=== PATIENT | female | born 1945 | race Caucasian/White ===

== ENCOUNTER 2019-08-25 12:05 | Inpatient (IN) | payer MEDICARE, OTHER ==
[~2019-08-25] VITALS: Ht 170.2 cm; Wt 79.8 kg
[~2019-08-25 12:05] MED LIST: BUME2TAB3 PO; CARV6.2511 PO; CHOL10003 PO; DIAZ5TAB PO; FERR325T58 PO; FURO-68 PO; HYDR-2761 PO; HYDR-2868 PO; LABE300T2 PO; LEVO500T59 PO; LIDO700A27 TP; LISI-334 PO; MULT-246 PO; NYST1POW2 PO; OXYB5TAB10 PO; POTA25TA4 PO; PRAM0.255 PO; TROL35.4 TP
[2019-08-25 12:32] LABS: BASO % 0 % (0-3); EOS # 0.1 x10^3/uL (0.0-0.7); EOS % 1 % (0-3); HEMOGLOBIN 14.2 g/dL (12.0-15.5); LYMPH # 0.5 x10^3/uL (1.0-4.8); LYMPH % 6 % (24-48); MEAN CORPUSCULAR HEMOGLOBIN 31 pg (25-35); MEAN CORPUSCULAR HGB CONC 34 g/dL (31-37); MEAN CORPUSCULAR VOLUME 93 fL (79-100); MONO # 0.4 x10^3/uL (0.0-1.1); MONO % 5 % (0-9); NEUT # 7.7 x10^3/uL (1.8-7.7); NEUT % 88 % (31-73); PLATELET COUNT 171 x10^3/uL (140-400); RED BLOOD COUNT 4.53 x10^6/uL (3.50-5.40); RED CELL DISTRIBUTION WIDTH 13.9 % (11.5-14.5); WHITE BLOOD COUNT 8.8 x10^3/uL (4.0-11.0)
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
--- NOTE | 2019-08-25 12:38 | RAD ---
PORTABLE CHEST 1V Clinical indications: Chest pain. COMPARISON: None available. Findings: No acute lung infiltrate or pleural effusion or pulmonary edema or lung mass or pneumothorax is seen. A right IJ Port-A-Cath is in place and the tip is seen within the lower SVC at the junction with the right atrium. Bipolar atrioventricular pacemaker is present via a right subclavian approach. The heart size is mildly enlarged. The mediastinum and pulmonary vasculature and both cadence are unremarkable otherwise. IMPRESSION: Mild cardiomegaly. No acute lung infiltrate. Electronically signed by: Giorgi Dunn MD (08/25/2019 12:35 PM) [facility]
[2019-08-25 12:42] LABS: PROTHROMBIN TIME PATIENT 13.8 SEC (11.7-14.0)
[2019-08-25 12:43] LABS: CREATININE 0.7 mg/dL (0.6-1.0); GFR 81.8; POTASSIUM 3.6 mmol/L (3.5-5.1)
--- NOTE | 2019-08-25 12:47 | PHYS DOC ---
Adult General Chief Complaint Chief Complaint: CHEST PAIN HPI HPI Patient is a 73 year old female who was brought here from the residential due to chest pain. Patient has history of coronary artery disease, had a pacemaker, residential staff gave her 3 doses of nitroglycerin, she continued have chest pain so EMS were called to take her here for evaluation. Patient was given morphine by EMS on route. Patient continued to complain of chest pain. She denies any fever, no cough. All other ROS is negative unless otherwise noted in HPI Review of Systems Review of Systems See above Current Medications Current Medications Current Medications Medications (Trade) Dose Ordered Sig/Cecelia Start Time Stop Time Status Last Admin Dose Admin Albuterol/ Ipratropium (Duoneb) 3 ml RTQID 08/25/19 16:00 08/26/19 15:59 Fentanyl Citrate (Fentanyl 2ml Vial) 50 mcg 1X ONCE 08/25/19 13:15 08/25/19 13:17 DC 08/25/19 13:30 50 MCG Labetalol HCl (Normodyne Iv Push) 20 mg PRN Q2HRS PRN 08/25/19 14:15 Magnesium Sulfate 50 ml @ 25 mls/hr 1X ONCE 08/25/19 14:15 08/25/19 16:14 Morphine Sulfate (Morphine Sulfate) 2 mg PRN Q2HR PRN 08/25/19 14:00 08/26/19 13:59 Ondansetron HCl (Zofran) 4 mg PRN Q8HRS PRN 08/25/19 14:00 08/26/19 13:59 Allergies Allergies Allergies Coded Allergies Type Severity Reaction Last Updated Verified adhesive Allergy Intermediate 08/25/19 Yes latex Allergy Intermediate 08/25/19 Yes methadone Allergy Intermediate 08/25/19 Yes nickel Allergy Intermediate 08/25/19 Yes Physical Exam Physical Exam See above Constitutional: Well developed, well nourished, in MODERATE acute distress, non- toxic appearance. [] HENT: Normocephalic, atraumatic, bilateral external ears normal, oropharynx mo ist, no oral exudates, nose normal. [] Eyes: PERRLA, EOMI, conjunctiva normal, no discharge. [] Neck: Normal range of motion, no tenderness, supple, no stridor. [] Cardiovascular:Heart rate regular rhythm, no murmur , CHEST PAIN IS REPRODUCIBLE TO PALPATION. Lungs & Thorax: Bilateral breath sounds clear to auscultation [] Abdomen: Bowel sounds normal, soft, no tenderness, no masses, no pulsatile masses. [] Skin: Warm, dry, no erythema, no rash. [] Back: No tenderness, no CVA tenderness. [] Extremities: LEFT LEG IS SWOLLEN, APPEARED TO HAVE CHRONIC VENOUS STASIS APPEARANCE. Neurologic: Alert and oriented X 3, NORMAL SPEECH. Psychologic: Affect normal, judgement normal, mood normal. [] Current Patient Data Vital Signs Vital Signs Date Time Temp Pulse Resp B/P (MAP) Pulse Ox O2 Delivery O2 Flow Rate FiO2 08/25/19 13:30 20 08/25/19 12:50 98.9 77 183/78 (113) 95 Room Air 98.9 Lab Values Laboratory Tests Test 08/25/19 12:18 08/25/19 13:02 White Blood Count 8.8 x10^3/uL (4.0-11.0) Red Blood Count 4.53 x10^6/uL (3.50-5.40) Hemoglobin 14.2 g/dL (12.0-15.5) Hematocrit 42.0 % (36.0-47.0) Mean Corpuscular Volume 93 fL (79-100) Mean Corpuscular Hemoglobin 31 pg (25-35) Mean Corpuscular Hemoglobin Concent 34 g/dL (31-37) Red Cell Distribution Width 13.9 % (11.5-14.5) Platelet Count 171 x10^3/uL (140-400) Neutrophils (%) (Auto) 88 % (31-73) H Lymphocytes (%) (Auto) 6 % (24-48) L Monocytes (%) (Auto) 5 % (0-9) Eosinophils (%) (Auto) 1 % (0-3) Basophils (%) (Auto) 0 % (0-3) Neutrophils # (Auto) 7.7 x10^3/uL (1.8-7.7) Lymphocytes # (Auto) 0.5 x10^3/uL (1.0-4.8) L Monocytes # (Auto) 0.4 x10^3/uL (0.0-1.1) Eosinophils # (Auto) 0.1 x10^3/uL (0.0-0.7) Basophils # (Auto) 0.0 x10^3/uL (0.0-0.2) Platelet Estimate Pending Prothrombin Time 13.8 SEC (11.7-14.0) Prothrombin Time INR 1.1 (0.8-1.1) Activated Partial Thromboplast Time 36 SEC (24-38) Sodium Level 139 mmol/L (136-145) Potassium Level 3.6 mmol/L (3.5-5.1) Chloride Level 102 mmol/L (98-107) Carbon Dioxide Level 30 mmol/L (21-32) Anion Gap 7 (6-14) Blood Urea Nitrogen 12 mg/dL (7-20) Creatinine 0.7 mg/dL (0.6-1.0) Estimated GFR (Cockcroft-Gault) 81.8 BUN/Creatinine Ratio 17 (6-20) Glucose Level 134 mg/dL (70-99) H Calcium Level 9.0 mg/dL (8.5-10.1) Magnesium Level 1.5 mg/dL (1.8-2.4) L Total Bilirubin 0.6 mg/dL (0.2-1.0) Aspartate Amino Transferase (AST) 24 U/L (15-37) Alanine Aminotransferase (ALT) 19 U/L (14-59) Alkaline Phosphatase 126 U/L (46-116) H Troponin I Quantitative < 0.017 ng/mL (0.000-0.055) OA-Vur-G-Type Natriuretic Peptide 2853 pg/mL (0-124) H Total Protein 6.9 g/dL (6.4-8.2) Albumin 2.8 g/dL (3.4-5.0) L Albumin/Globulin Ratio 0.7 (1.0-1.7) L Lipase 22 U/L (73-393) L Urine Collection Type Unknown Urine Color Yellow Urine Clarity Cloudy Urine pH 6.0 Urine Specific [place] 1.015 Urine Protein Negative mg/dL (NEG-TRACE) Urine Glucose (UA) Negative mg/dL (NEG) Urine Ketones (Stick) Negative mg/dL (NEG) Urine Blood Trace (NEG) Urine Nitrite Negative (NEG) Urine Bilirubin Negative (NEG) Urine Urobilinogen Dipstick 1.0 mg/dL (0.2 mg/dL) Urine Leukocyte Esterase Large (NEG) Urine RBC 0 /HPF (0-2) Urine WBC Tntc /HPF (0-4) Urine Squamous Epithelial Cells Mod /LPF Urine Amorphous Sediment Present /HPF Urine Bacteria Many /HPF (0-FEW) Laboratory Tests 08/25/19 12:18 Laboratory Tests 08/25/19 12:18 EKG EKG EKG WAS DONE, READ BY THIS PHYSICIAN AT 1211, RATE OF 81 BPM, PACED RHYTHM, LBBB NO STEMI Radiology/Procedures Radiology/Procedures [][facility] [address] [place] [address] IMAGING REPORT Signed PATIENT: AIDAN AYERSACCOUNT: [id number] : 1945 LOCATION: ER AGE: 73 SEX: F EXAM STATUS: PRE ER ORD. PHYSICIAN: MELISA COLE DO REASON: CHEST PAIN PROCEDURE: PORTABLE CHEST 1V PORTABLE CHEST 1V Clinical indications: Chest pain. COMPARISON: None available. Findings: No acute lung infiltrate or pleural effusion or pulmonary edema or lung mass or pneumothorax is seen. A right IJ Port-A-Cath is in place and the tip is seen within the lower SVC at the junction with the right atrium. Bipolar atrioventricular pacemaker is present via a right subclavian approach. The heart size is mildly enlarged. The mediastinum and pulmonary vasculature and both cadence are unremarkable otherwise. IMPRESSION: Mild cardiomegaly. No acute lung infiltrate. Electronically signed by: Christiano Dunn MD (08/25/2019 12:35 PM) [facility] DICTATED and SIGNED BY: CHRISTIANO DUNN MD DATE: 08/25/19 1235 Course & Med Decision Making Course & Med Decision Making Pertinent Labs and Imaging studies reviewed. (See chart for details) PATIENT CONTINUES TO HAVE CHEST PAIN DESPITE OF PAIN MEDICATION GIVEN, PAIN APPEARED TO BE REPRODUCIBLE TO PALPATION. HOWEVER DUE TO HER COMORBILITIES, WILL ADMIT HER FOR OBSERVATION. Dragon Disclaimer Dragon Disclaimer This electronic medical record was generated, in whole or in part, using a voice recognition dictation system. Departure Departure Impression: Primary Impression: Chest pain Disposition: ADMITTED INPATIENT Admitting Physician: Madi. Lora Condition: STABLE MELISA COLE DO Aug 25, 2019 12:47
[2019-08-25 12:48] LABS: ALBUMIN 2.8 g/dL (3.4-5.0); ALBUMIN/GLOBULIN RATIO 0.7 (1.0-1.7); MAGNESIUM 1.5 mg/dL (1.8-2.4); TOTAL BILIRUBIN 0.6 mg/dL (0.2-1.0); TOTAL PROTEIN 6.9 g/dL (6.4-8.2)
[2019-08-25 13:12] LABS: BILIRUBIN,URINE NEGATIVE (NEG); CLARITY,URINE CLOUDY; COLOR,URINE YELLOW; NITRITE,URINE NEGATIVE (NEG); PROTEIN,URINE NEGATIVE (NEG-TRACE)
[2019-08-25] MEDS ORDERED: ONDANSETRON PF 4 MG/2 ML VIAL. ONE (13:12)
[2019-08-25] MEDS ORDERED: fentaNYL PF VIAL 100 MCG/2 ML VIAL IVP ONE (13:15)
[2019-08-25 13:29] LABS: SQUAMOUS EPITHELIAL CELL,UR MOD /LPF
--- NOTE | 2019-08-25 13:29 | EKG ---
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
[2019-08-25 13:30] LABS: AMORPHOUS SEDIMENT,UR PRESENT /HPF; BACTERIA,URINE MANY /HPF (0-FEW); RBC,URINE 0 /HPF (0-2); WBC,URINE TNTC /HPF (0-4)
[2019-08-25] MEDS ORDERED: ONDANSETRON PF 4 MG/2 ML VIAL. IV ONE (13:45)
[2019-08-25] MEDS ORDERED: ONDANSETRON PF 4 MG/2 ML VIAL. IV PRN (14:00)
[2019-08-25] MEDS ORDERED: MAGNESIUM SULFATE 2GM 50 ML IV ONE (14:15)
[2019-08-25] MEDS ORDERED: LABETALOL 20 MG/4 ML DISP.SYRIN. IVP PRN (14:15)
[2019-08-25] MEDS: MORPHINE SULFATE 2 MG/ML VIAL. IV PRN ×2 (14:36→17:02)
[2019-08-25 14:48] LABS: % BANDS 2 % (0-9); % EOS 1 % (0-5); % LYMPHS 8 % (24-48); % MONOS 2 % (0-10); % SEGS 87 % (35-66); PLT ESTIMATE ADEQUATE (ADEQUATE); TOXIC GRANULATION SLIGHT; TOXIC VACUOLATION SLIGHT
[2019-08-25] MEDS: IPRATRPIUM/ALBUTEROL 0.5/2.5MG 3 ML NEBU. NEB SCH ×2 (15:02→19:19)
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
[2019-08-25 15:30] VITALS: BP 177/74
[2019-08-25] MEDS ORDERED: FERR325T14 PO (16:08)
[2019-08-25] MEDS ORDERED: ONDA4TAB12 PO (16:08)
[2019-08-25] MEDS ORDERED: BUPR300T4 PO (16:08)
[2019-08-25] MEDS ORDERED: TRAZ-118 PO (16:08)
[2019-08-25] MEDS ORDERED: MORP60TA60 PO (16:08)
[2019-08-25] MEDS ORDERED: NITR0.4T22 SL (16:08)
[2019-08-25] MEDS ORDERED: DONE10TA61 PO (16:08)
[2019-08-25] MEDS ORDERED: CHOL500016 PO (16:08)
[2019-08-25] MEDS ORDERED: OXYC5CAP PO (16:08)
[2019-08-25] MEDS ORDERED: PANT40TA6 PO (16:08)
[2019-08-25] MEDS ORDERED: AMLO5TAB10 PO (16:08)
[2019-08-25] MEDS ORDERED: DIPH25CA58 PO (16:08)
[2019-08-25] MEDS ORDERED: GABA-585 PO (16:08)
[2019-08-25] MEDS ORDERED: CARV12.511 PO (16:08)
[2019-08-25] MEDS ORDERED: MULT-121 PO (16:08)
[2019-08-25] MEDS ORDERED: ASCO500C PO (16:08)
[2019-08-25] MEDS ORDERED: SERT50TA PO (16:08)
[2019-08-25] MEDS ORDERED: POTA20TA82 PO (16:08)
[2019-08-25] MEDS: CARVEDILOL 12.5 MG TABLET. PO SCH (17:01)
[2019-08-25 19:20] VITALS: BP_SYST 152; BP_SYST 159; BP_DIAS 65; BP_DIAS 87
[2019-08-25] MEDS: PATCH REMOVAL. MC SCH (21:00)
[2019-08-25 23:52] VITALS: BP 154/67
[2019-08-26] MEDS: MORPHINE SULFATE 2 MG/ML VIAL. IV PRN ×3 (01:08→08:56)
[2019-08-26 03:00] VITALS: BP 152/64
[2019-08-26] MEDS: cefTRIAXone IV Push 1 GM VIAL. IVP SCH (06:38)
[2019-08-26 07:00] VITALS: BP 149/66
[2019-08-26] MEDS: amLODIPine BESYLATE 5 MG TABLET PO SCH (08:53)
[2019-08-26] MEDS: CARVEDILOL 12.5 MG TABLET. PO SCH ×2 (08:54→17:51)
[2019-08-26] MEDS: LIDOCAINE (700MG/PATCH) PATCH. TD SCH (08:54)
[2019-08-26] MEDS: ASPIRIN ENTERIC COATED 81 MG TABLET.DR. PO SCH (08:54)
[2019-08-26] MEDS: IPRATRPIUM/ALBUTEROL 0.5/2.5MG 3 ML NEBU. NEB SCH ×3 (09:00→20:37)
[2019-08-26] MEDS ORDERED: ONDANSETRON ODT 4 MG TAB.RAPDIS. PO PRN (09:15)
[2019-08-26] MEDS ORDERED: diphenhydrAMINE HCL 25 MG CAPSULE PO PRN (09:15)
[2019-08-26] MEDS ORDERED: NITROGLYCERIN SUBLINGUAL 0.4 MG BOTTLE OF 25. SL PRN (09:15)
[2019-08-26] MEDS ORDERED: oxyCODONE IR 5 MG TABLET PO PRN (09:30)
[2019-08-26] MEDS ORDERED: IOHEXOL 350 MG/ML 100 ML VIAL. IV ONE (09:30)
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
[2019-08-26] MEDS ORDERED: amLODIPine BESYLATE 5 MG TABLET PO SCH (10:00)
[2019-08-26] MEDS: MORPHINE ER 30 MG TABLET.ER PO SCH ×3 (10:12→20:59)
[2019-08-26] MEDS: ASCORBIC ACID 500 MG TABLET PO SCH (10:12)
[2019-08-26] MEDS: buPROPion XL 150 MG TAB.ER.24H. PO SCH (10:12)
[2019-08-26] MEDS: MULTIVITAMIN with MINERAL TABLET. PO SCH (10:12)
[2019-08-26] MEDS: SERTRALINE 50 MG TABLET. PO SCH (10:12)
[2019-08-26] MEDS: POTASSIUM CHLORIDE 20 MEQ TABLET.ER. PO SCH ×2 (10:12→17:51)
[2019-08-26] MEDS: CHOLECALCIFEROL (VITAMIN D3) 5,000 UNIT CAPSULE PO SCH (10:12)
--- NOTE | 2019-08-26 10:12 | RAD ---
CT ANGIOGRAPHY CHEST Indication: Chest pain, aggravated with deep breath. . Technique: After intravenous contrast administration, CT imaging was performed of the chest. MIP reconstructions were obtained. Exposure: One or more of the following individualized dose reduction techniques were utilized for this examination: 1. Automated exposure control 2. Adjustment of the mA and/or kV according to patient size 3. Use of iterative reconstruction technique. Comparison: None FINDINGS: Large right thyroid mass measures about 3.8 by at least 2.8 cm transverse dimensions. This appears to be a solid mass and therefore malignancy is a concern. This slightly deviates the trachea to the left. Recommend further clinical and ultrasound workup. Couple of small nodules in the left thyroid less than 1 cm. Pulsatility artifact at the main pulmonary artery. No evidence of a pulmonary embolism. Irregularity of the wall of the ascending aorta, likely due to pulsatility artifact, no definite aortic dissection. Ascending aorta measures about 3.6 cm transverse diameter. Mild aortic calcifications. No evidence of gross aortic aneurysm. Heart size is enlarged. Small pericardial effusion. No evidence of pathologic lymph node enlargement. Mild patchy opacities, particularly in the dependent lower lungs, most likely atelectasis versus mild infiltrate. No dense lobar airspace consolidation. No evidence of pneumothorax. Trachea and mainstem bronchi are patent. Degenerative spondylosis of the spine. Vertebral body height appears grossly intact. Right chest wall port is noted. Pacemaker device is noted. Scans to the upper abdomen are limited by technique and artifact due to the patient's arms. No definite abnormality here. IMPRESSION: 1. No evidence of pulmonary embolism. 2. Large right thyroid mass. A similar finding was described on thyroid ultrasound of March 05, 2017 report although those images are not available. Recommend follow-up ultrasound exam. 3. Cardiomegaly with small pleural effusion. 4. Mild patchy atelectasis or infiltrates in both lungs. Electronically signed by: Azael Ag MD (08/26/2019 10:09 AM) [facility]
[2019-08-26 11:00] VITALS: BP 144/67
--- NOTE | 2019-08-26 12:42 | PN ---
DATE: 08/26/2019 SUBJECTIVE: The patient is resting, slightly propped up in bed, continued to complain of the chest pain, it is mostly retrosternal, not associated with any shortness of breath, cough, phlegm. Denied any nausea, vomiting, or diaphoresis. Pain is easily reproducible by palpation. She has so far 2 sets of cardiac enzymes that were negative. Her left lower extremity venous Doppler ultrasound was negative. PHYSICAL EXAMINATION: GENERAL: When I examined her this morning, she was resting slightly propped up in bed, in no apparent respiratory distress, pale. No jaundice, cyanosis or thyromegaly. No jugular venous distension. No lower limb edema. VITAL SIGNS: Her heart rate was 62, blood pressure was 152/64, temperature was 97.9, respiratory rate was 18, and oxygen saturation was 98% on 3 liters of oxygen. HEAD, EYES, EARS, NOSE AND THROAT: Showed normocephalic, atraumatic. NECK: Supple. HEART: Showed normal first and second heart sounds. No gallop or murmur. CHEST: Clear to auscultation. No crepitation or rhonchi. ABDOMEN: Soft, nontender. No guarding or rigidity. No organomegaly. All cranial nerves intact. Bowel sounds normal. NEUROLOGIC: She is awake, alert, responding appropriately. All cranial nerves intact. She moves extremities without difficulty. She is mostly bedbound and chair bound. LABORATORY DATA: She apparently has 2 sets of cardiac enzymes that ruled out myocardial infarction. Her fasting lipid profile is well within acceptable range. Her TSH was normal. PLAN: My plan is to check another set of troponin for which we arranged for the CT scan of the chest with PE protocol. Start her on IV ceftriaxone for urinary tract infection, resumed all her medication and decide the further management accordingly. CHLOÉ NAPOLES MD DR: MARINA/delfin JOB#: [id number] / [id number]
--- NOTE | 2019-08-26 13:52 | PDOC ---
PROGRESS NOTES Subjective Subjective Patient seen and examined Objective Objective Vital Signs Date Time Temp Pulse Resp B/P (MAP) Pulse Ox O2 Delivery O2 Flow Rate FiO2 08/26/19 12:43 98 Nasal Cannula 2.0 08/26/19 11:00 98.3 74 18 144/67 (92) 98.3 Intake and Output 08/26/19 07:00 Intake Total 100 ml Output Total 300 ml Balance -200 ml Intake Oral 100 ml Output Urine Total 300 ml # Voids 4 Physical Exam Abdomen: Normal bowel sounds Heart: Regular rate General: No acute distress HEENT: Atraumatic Lungs: Clear to auscultation Assessment Assessment Problems Medical Problems: (1) Chest pain Status: Acute 1. Atypical CP: suspect MSK, reproducible. Doubt ACS. Troponins normal. Continue medical treatment. 2. Abdominal pain with UTI: per PCP 3. HTN: labile 4. Debility: WC bound 5. PPM in situ: past CHB. [facility]. Paced rhythm 6. Chronic diastolic CHF: compensated 7. HLP Comment Review of Relevant I have reviewed the following items andrey (where applicable) has been applied. Labs Laboratory Tests Test 08/25/19 12:18 08/25/19 13:02 08/26/19 07:05 08/26/19 13:00 White Blood Count 8.8 x10^3/uL (4.0-11.0) Red Blood Count 4.53 x10^6/uL (3.50-5.40) Hemoglobin 14.2 g/dL (12.0-15.5) Hematocrit 42.0 % (36.0-47.0) Mean Corpuscular Volume 93 fL (79-100) Mean Corpuscular Hemoglobin 31 pg (25-35) Mean Corpuscular Hemoglobin Concent 34 g/dL (31-37) Red Cell Distribution Width 13.9 % (11.5-14.5) Platelet Count 171 x10^3/uL (140-400) Neutrophils (%) (Auto) 88 % (31-73) Lymphocytes (%) (Auto) 6 % (24-48) Monocytes (%) (Auto) 5 % (0-9) Eosinophils (%) (Auto) 1 % (0-3) Basophils (%) (Auto) 0 % (0-3) Neutrophils # (Auto) 7.7 x10^3/uL (1.8-7.7) Lymphocytes # (Auto) 0.5 x10^3/uL (1.0-4.8) Monocytes # (Auto) 0.4 x10^3/uL (0.0-1.1) Eosinophils # (Auto) 0.1 x10^3/uL (0.0-0.7) Basophils # (Auto) 0.0 x10^3/uL (0.0-0.2) Segmented Neutrophils % 87 % (35-66) Band Neutrophils % 2 % (0-9) Lymphocytes % 8 % (24-48) Monocytes % 2 % (0-10) Eosinophils % 1 % (0-5) Toxic Granulation Slight Toxic Vacuolation Slight Platelet Estimate Adequate (ADEQUATE) Prothrombin Time 13.8 SEC (11.7-14.0) Prothromb Time International Ratio 1.1 (0.8-1.1) Activated Partial Thromboplast Time 36 SEC (24-38) Sodium Level 139 mmol/L (136-145) Potassium Level 3.6 mmol/L (3.5-5.1) Chloride Level 102 mmol/L (98-107) Carbon Dioxide Level 30 mmol/L (21-32) Anion Gap 7 (6-14) Blood Urea Nitrogen 12 mg/dL (7-20) Creatinine 0.7 mg/dL (0.6-1.0) Estimated GFR (Cockcroft-Gault) 81.8 BUN/Creatinine Ratio 17 (6-20) Glucose Level 134 mg/dL (70-99) Calcium Level 9.0 mg/dL (8.5-10.1) Magnesium Level 1.5 mg/dL (1.8-2.4) Total Bilirubin 0.6 mg/dL (0.2-1.0) Aspartate Amino Transf (AST/SGOT) 24 U/L (15-37) Alanine Aminotransferase (ALT/SGPT) 19 U/L (14-59) Alkaline Phosphatase 126 U/L (46-116) Troponin I Quantitative < 0.017 ng/mL (0.000-0.055) < 0.017 ng/mL (0.000-0.055) < 0.017 ng/mL (0.000-0.055) [id number]-Type Natriuretic Peptide 2853 pg/mL (0-124) Total Protein 6.9 g/dL (6.4-8.2) Albumin 2.8 g/dL (3.4-5.0) Albumin/Globulin Ratio 0.7 (1.0-1.7) Triglycerides Level 78 mg/dL (0-150) Cholesterol Level 141 mg/dL (0-200) LDL Cholesterol, Calculated 78 mg/dL (0-100) VLDL Cholesterol, Calculated 16 mg/dL (0-40) Non-HDL Cholesterol Calculated 94 mg/dL (0-129) HDL Cholesterol 47 mg/dL (40-60) Cholesterol/HDL Ratio 3.0 Lipase 22 U/L (73-393) Thyroid Stimulating Hormone (TSH) 1.037 uIU/mL (0.358-3.74) Urine Collection Type Unknown Urine Color Yellow Urine Clarity Cloudy Urine pH 6.0 Urine Specific [place] 1.015 Urine Protein Negative mg/dL (NEG-TRACE) Urine Glucose (UA) Negative mg/dL (NEG) Urine Ketones (Stick) Negative mg/dL (NEG) Urine Blood Trace (NEG) Urine Nitrite Negative (NEG) Urine Bilirubin Negative (NEG) Urine Urobilinogen Dipstick 1.0 mg/dL (0.2 mg/dL) Urine Leukocyte Esterase Large (NEG) Urine RBC 0 /HPF (0-2) Urine WBC Tntc /HPF (0-4) Urine Squamous Epithelial Cells Mod /LPF Urine Amorphous Sediment Present /HPF Urine Bacteria Many /HPF (0-FEW) Laboratory Tests Test 08/26/19 07:05 08/26/19 13:00 Troponin I Quantitative < 0.017 ng/mL (0.000-0.055) < 0.017 ng/mL (0.000-0.055) Medications Current Medications Ondansetron HCl (Zofran) 4 mg STK-MED ONCE .ROUTE ; Start 08/25/19 at 13:12; Stop 08/25/19 at 13:12; Status DC Fentanyl Citrate (Fentanyl 2ml Vial) 50 mcg 1X ONCE IVP Last administered on 08/25/19at 13:30; Start 08/25/19 at 13:15; Stop 08/25/19 at 13:17; Status DC Ondansetron HCl (Zofran) 4 mg 1X ONCE IV Last administered on 08/25/19at 13:15; Start 08/25/19 at 13:45; Stop 08/25/19 at 13:46; Status DC Ondansetron HCl (Zofran) 4 mg PRN Q8HRS PRN IV NAUSEA/VOMITING Last administered on 08/25/19 14:36; Start 08/25/19 at 14:00; Stop 08/26/19 at 13:59 Morphine Sulfate (Morphine Sulfate) 2 mg PRN Q2HR PRN IV PAIN Last administered on 08/26/19 08:56; Start 08/25/19 at 14:00; Stop 08/26/19 at 13:59 Albuterol/ Ipratropium (Duoneb) 3 ml RTQID NEB Last administered on 08/26/19 12:41; Start 08/25/19 at 16:00; Stop 08/26/19 at 15:59 Magnesium Sulfate 50 ml @ 25 mls/hr 1X ONCE IV Last administered on 08/25/19 14:38; Start 08/25/19 at 14:15; Stop 08/25/19 at 16:14; Status DC Labetalol HCl (Normodyne Iv Push) 20 mg PRN Q2HRS PRN IVP ELEVATED BP, SEE COMMENTS Last administered on 08/25/19 14:37; Start 08/25/19 at 14:15 Amlodipine Besylate (Norvasc) 5 mg DAILY PO Last administered on 08/26/19 08:53; Start 08/26/19 at 09:00 Carvedilol (Coreg) 12.5 mg BIDWMEALS PO Last administered on 08/26/19 08:54; Start 08/25/19 at 17:00 Lidocaine (Lidoderm) 1 patch DAILY TD Last administered on 08/26/19 08:54; Start 08/26/19 at 09:00 Aspirin (Ecotrin) 81 mg DAILYWBKFT PO Last administered on 08/26/19 08:54; Start 08/26/19 at 08:00 Miscellaneous (Lidoderm Patch Removal) 1 ea QHS MC Last administered on 08/25/19 21:00; Start 08/25/19 at 21:00 Ceftriaxone Sodium (Rocephin) 1 gm Q24H IVP Last administered on 08/26/19 06:38; Start 08/26/19 at 07:00 Amlodipine Besylate (Norvasc) 5 mg DAILY PO ; Start 08/26/19 at 10:00 Carvedilol (Coreg) 12.5 mg BIDWMEALS PO ; Start 08/26/19 at 17:00; Stop 08/26/19 at 09:24; Status DC Diphenhydramine HCl (Benadryl) 25 mg PRN Q4HRS PRN PO ALLERGIES; Start 08/26/19 at 09:15 Donepezil HCl (Aricept) 10 mg QHS PO ; Start 08/26/19 at 21:00 Ferrous Sulfate (Feosol) 325 mg BIDWMEALS PO ; Start 08/26/19 at 17:00 Gabapentin (Neurontin) 100 mg TID PO ; Start 08/26/19 at 14:00 Nitroglycerin (Nitrostat) 0.4 mg PRN Q5MIN PRN SL CHEST PAIN; Start 08/26/19 at 09:15 Ondansetron HCl (Zofran Odt) 4 mg PRN Q8HRS PRN PO NAUSEA/VOMITING; Start 08/26/19 at 09:15 Pantoprazole Sodium (Protonix) 40 mg BIDWMEALS PO ; Start 08/26/19 at 17:00 Sertraline HCl (Zoloft) 50 mg DAILY PO Last administered on 08/26/19at 10:12; Start 08/26/19 at 10:00 Trazodone HCl (Desyrel) 50 mg QHS PO ; Start 08/26/19 at 21:00 Ascorbic Acid (Vitamin C) 500 mg DAILY PO Last administered on 08/26/19at 10:12; Start 08/26/19 at 10:00 Bupropion HCl (Wellbutrin Xl) 300 mg DAILY PO Last administered on 08/26/19at 10:12; Start 08/26/19 at 10:00 Vitamin D (Vitamin D3) 5,000 unit DAILY PO Last administered on 08/26/19at 10:12; Start 08/26/19 at 10:00 Morphine Sulfate (Ms Contin) 60 mg TID PO Last administered on 08/26/19at 10:12; Start 08/26/19 at 10:00 Multivitamins (Thera M Plus) 1 tab DAILY PO Last administered on 08/26/19at 10:12; Start 08/26/19 at 10:00 Oxycodone HCl (Roxicodone) 5 mg PRN Q4HRS PRN PO PAIN; Start 08/26/19 at 09:30 Potassium Chloride (Klor-Con) 20 meq BIDWMEALS PO Last administered on 08/26/19at 10:12; Start 08/26/19 at 10:00 Iohexol (Omnipaque 350 Mg/ml) 90 ml 1X ONCE IV Last administered on 08/26/19at 09:47; Start 08/26/19 at 09:30; Stop 08/26/19 at 09:31; Status DC Active Scripts Active Reported Vitamin D3 (Cholecalciferol (Vitamin D3)) 5,000 Unit Tablet 1 Tab PO DAILY 30 Days Vitamin C (Ascorbic Acid) 500 Mg Capsule.er 1 Cap PO DAILY 30 Days Trazodone Hcl 50 Mg Tablet 1 Tab PO QHS Zoloft (Sertraline Hcl) 50 Mg Tablet 1 Tab PO DAILY Potassium Chloride 20 Meq Tablet.er 1 Tab PO BID 30 Days Pantoprazole Sodium 40 Mg Tablet.dr 40 Mg PO BID Oxycodone Hcl 5 Mg Capsule 5 Mg PO PRN Q4HRS PRN Ondansetron Odt (Ondansetron) 4 Mg Tab.rapdis 1 Tab PO PRN Q8HRS PRN NITROGLYCERIN SubLingual (Nitroglycerin) 0.4 Mg Tab.subl 0.4 Mg SL PRN Q5MIN PRN Multiple Vitamins (Multivitamin) 1 Each Tablet 1 Tab PO DAILY 30 Days Morphine Sulfate Er (Morphine Sulfate) 60 Mg Tablet.er 1 Tab PO TID Gabapentin (Gabapentin) 100 Mg Capsule 100 Mg PO TID Ferrous Sulfate 325 Mg Tablet 1 Tab PO BID Carvedilol (Carvedilol) 12.5 Mg Tablet 12.5 Mg PO BIDWMEALS Bupropion Xl (Bupropion Hcl) 300 Mg Tab.er.24h 1 Tab PO DAILY Benadryl (Diphenhydramine Hcl) 25 Mg Capsule 25 Mg PO Q4HRS PRN Aricept (Donepezil Hcl) 10 Mg Tablet 1 Tab PO QHS 30 Days Amlodipine Besylate 5 Mg Tablet 5 Mg PO DAILY Vitals/I & O Vital Sign - Last 24 Hours 08/25/19 08/25/19 08/25/19 08/25/19 14:00 14:30 14:36 14:37 Pulse 72 74 82 Resp 22 20 18 B/P (MAP) 182/77 (112) 182/81 (114) 182/77 Pulse Ox 99 98 98 O2 Delivery Nasal Cannula Nasal Cannula Nasal Cannula O2 Flow Rate 3.0 3.0 2.0 08/25/19 08/25/19 08/25/19 08/25/19 15:10 15:30 15:30 16:46 Temp 98.8 98.8 Pulse 75 Resp 20 B/P (MAP) 177/74 (108) Pulse Ox 98 98 97 O2 Delivery Nasal Cannula Nasal Cannula Nasal Cannula Nasal Cannula O2 Flow Rate 2.0 2.0 2.0 2.0 08/25/19 08/25/19 08/25/19 08/25/19 17:01 17:02 19:19 19:20 Temp 97.8 97.8 Pulse 75 74 Resp 18 B/P (MAP) 163/70 152/65 (94) Pulse Ox 98 98 97 O2 Delivery Nasal Cannula Nasal Cannula Nasal Cannula O2 Flow Rate 2.0 2.0 3.0 08/25/19 08/25/19 08/26/19 08/26/19 20:01 23:52 01:08 01:50 Temp 98.0 98.0 Pulse 61 Resp 18 16 20 B/P (MAP) 154/67 (96) Pulse Ox 98 O2 Delivery Nasal Cannula Nasal Cannula Nasal Cannula Nasal Cannula O2 Flow Rate 2.0 3.0 2.0 2.0 08/26/19 08/26/19 08/26/19 08/26/19 03:00 06:15 06:37 07:00 Temp 97.9 98.1 97.9 98.1 Pulse 62 73 Resp 18 20 20 18 B/P (MAP) 152/64 (93) 149/66 (93) Pulse Ox 98 96 O2 Delivery Nasal Cannula Nasal Cannula Nasal Cannula Nasal Cannula O2 Flow Rate 3.0 2.0 2.0 3.0 08/26/19 08/26/19 08/26/19 08/26/19 08:00 08:53 08:54 09:03 Pulse 64 64 B/P (MAP) 149/66 149/66 Pulse Ox 98 O2 Delivery Nasal Cannula Nasal Cannula O2 Flow Rate 2.0 2.0 08/26/19 08/26/19 11:00 12:43 Temp 98.3 98.3 Pulse 74 Resp 18 B/P (MAP) 144/67 (92) Pulse Ox 99 98 O2 Delivery Nasal Cannula Nasal Cannula O2 Flow Rate 3.0 2.0 Intake and Output 08/25/19 08/25/19 08/26/19 15:00 23:00 07:00 Intake Total 100 ml 0 ml Output Total 300 ml Balance -200 ml 0 ml INDER MACKEY MD Aug 26, 2019 13:52
[2019-08-26 15:00] VITALS: BP 135/62
[2019-08-26] MEDS: GABAPENTIN 100 MG CAPSULE. PO SCH ×2 (15:40→20:58)
[2019-08-26] MEDS ORDERED: CARVEDILOL 12.5 MG TABLET. PO SCH (17:00)
[2019-08-26] MEDS: PANTOPRAZOLE 40 MG TABLET.DR. PO SCH (17:50)
[2019-08-26] MEDS: FERROUS SULFATE 325 MG TABLET. PO SCH (17:51)
[2019-08-26 19:00] VITALS: BP 157/68
[2019-08-26] MEDS: LACTOBACILLUS RHAMNOSUS GG 1 CAPSULE. PO SCH (20:58)
[2019-08-26] MEDS: DONEPEZIL HCL 10 MG TABLET. PO SCH (20:58)
[2019-08-26] MEDS: traZODone 50 MG TABLET. PO SCH (20:58)
[2019-08-26] MEDS: PATCH REMOVAL. MC SCH (21:00)
[2019-08-26 23:08] VITALS: BP 144/65
[2019-08-27 03:13] VITALS: BP 126/59
[2019-08-27] MEDS: cefTRIAXone IV Push 1 GM VIAL. IVP SCH (06:58)
[2019-08-27 07:00] VITALS: BP 144/67
[2019-08-27 07:41] LABS: ALBUMIN 2.3 g/dL (3.4-5.0); ALBUMIN/GLOBULIN RATIO 0.7 (1.0-1.7); CALCIUM 8.6 mg/dL (8.5-10.1); CREATININE 0.6 mg/dL (0.6-1.0); GFR 97.7; POTASSIUM 4.4 mmol/L (3.5-5.1); TOTAL BILIRUBIN 0.4 mg/dL (0.2-1.0); TOTAL PROTEIN 5.6 g/dL (6.4-8.2)
[2019-08-27] MEDS: IPRATRPIUM/ALBUTEROL 0.5/2.5MG 3 ML NEBU. NEB SCH ×4 (08:26→20:14)
[2019-08-27] MEDS: LIDOCAINE (700MG/PATCH) PATCH. TD SCH (09:19)
[2019-08-27] MEDS: MULTIVITAMIN with MINERAL TABLET. PO SCH (09:20)
[2019-08-27] MEDS: GABAPENTIN 100 MG CAPSULE. PO SCH ×3 (09:20→21:00)
[2019-08-27] MEDS: SERTRALINE 50 MG TABLET. PO SCH (09:20)
[2019-08-27] MEDS: LACTOBACILLUS RHAMNOSUS GG 1 CAPSULE. PO SCH ×2 (09:20→20:59)
[2019-08-27] MEDS: CHOLECALCIFEROL (VITAMIN D3) 5,000 UNIT CAPSULE PO SCH (09:20)
[2019-08-27] MEDS: POTASSIUM CHLORIDE 20 MEQ TABLET.ER. PO SCH ×2 (09:20→17:25)
[2019-08-27] MEDS: ASCORBIC ACID 500 MG TABLET PO SCH (09:20)
[2019-08-27] MEDS: ASPIRIN ENTERIC COATED 81 MG TABLET.DR. PO SCH (09:21)
[2019-08-27] MEDS: amLODIPine BESYLATE 5 MG TABLET PO SCH (09:21)
[2019-08-27] MEDS: buPROPion XL 150 MG TAB.ER.24H. PO SCH (09:21)
[2019-08-27] MEDS: PANTOPRAZOLE 40 MG TABLET.DR. PO SCH ×2 (09:21→17:25)
[2019-08-27] MEDS: CARVEDILOL 12.5 MG TABLET. PO SCH ×2 (09:21→17:25)
[2019-08-27] MEDS: FERROUS SULFATE 325 MG TABLET. PO SCH ×2 (09:21→17:25)
[2019-08-27] MEDS: MORPHINE ER 30 MG TABLET.ER PO SCH ×3 (09:22→21:00)
[2019-08-27 10:44] VITALS: BP 136/60
--- NOTE | 2019-08-27 11:17 | PN ---
DATE: 08/27/2019 The patient is resting, slightly propped up in bed, in no apparent respiratory distress. On questioning her, she continued to complain of chest pain, although it is slightly better than before. She stated that she is now able to breathe easier. She has had 3 sets of cardiac enzymes that ruled out myocardial infarction and her CT scan of the chest with CT angiogram of the chest showed no evidence of pulmonary embolism. It did show large right thyroid mass. Similar findings were described on thyroid ultrasound on 03/05/2017. She has cardiomegaly with small pleural effusions and mild patchy atelectasis or infiltrates in both lungs. PHYSICAL EXAMINATION: GENERAL: When I examined her this morning, she looked well and was clearly in no apparent respiratory distress. No pallor, jaundice, cyanosis, or thyromegaly. No jugular venous distention. No lower limb edema. VITAL SIGNS: Her heart rate was 60, blood pressure was 144/67, temperature was 98.5, respiratory rate was 18 and oxygen saturation was 97% on 2 liters of oxygen. HEAD, EYES, EARS, NOSE, AND THROAT: Showed normocephalic, atraumatic. NECK: Supple. HEART: Showed normal first and second heart sounds. No gallop, rub, or murmur. CHEST: Clear to auscultation. I could not appreciate any crepitation or rhonchi. She continued to have tenderness on palpation of the chest wall, mostly in the sternum and the right side. ABDOMEN: Soft, nontender. No guarding or rigidity. No organomegaly. All hernial orifices are intact. Bowel sounds normal. NEUROLOGIC: She is awake, alert, responding appropriately. She moves upper extremities to a much greater extent than lower extremities. She is mostly bedbound and chair-bound. Her chemistry this morning showed a serum sodium 139, potassium 4.4, chloride 102, bicarbonate 29, anion gap of 8, BUN 18, creatinine 0.6, estimated GFR was 98 mL per minute, her glucose was 73, calcium was 8.6. Total bilirubin, AST, ALT, alkaline phosphatase were normal. Her total protein was 5.6. Albumin was 2.3. Her TSH is normal. Her lipid profile has been well within therapeutic range. ASSESSMENT: Chest pain, atypical acute myocardial infarction is ruled out. The chest pain is reproducible, most likely musculoskeletal in nature. She has urinary tract infection, for which she is on IV Rocephin. Chronic diastolic congestive heart failure, well compensated. Hyperlipidemia. PLAN: To continue with IV Rocephin. So far, all her labs are revealing. I will do the total body bone scan tomorrow. If it is normal, she can be discharged back to [facility]. CHLOÉ NAPOLES MD DR: MARINA/delfin JOB#: [id number] / [id number]
--- NOTE | 2019-08-27 13:56 | PDOC ---
PROGRESS NOTES Subjective Subjective Patient seen and examined Objective Objective Vital Signs Date Time Temp Pulse Resp B/P (MAP) Pulse Ox O2 Delivery O2 Flow Rate FiO2 08/27/19 11:57 97 Nasal Cannula 2.0 08/27/19 10:44 98.3 67 16 136/60 (85) 98.3 Intake and Output 08/27/19 07:00 Intake Total 900 ml Output Total 300 ml Balance 600 ml Intake Oral 900 ml Output Urine Total 300 ml # Voids 4 Physical Exam Abdomen: Normal bowel sounds Heart: Regular rate General: No acute distress Lungs: Other (slightly decreased breath sounds) Assessment Assessment Problems Medical Problems: (1) Chest pain Status: Acute 1. Atypical CP: suspect MSK, reproducible. Doubt ACS. Troponins normal. Continue medical treatment. 2. Abdominal pain with UTI: per PCP 3. HTN: improved. Continue medications. 4. Debility: WC bound 5. PPM in situ: past CHB. [facility]. Paced rhythm 6. Chronic diastolic CHF: compensated 7. HLP Comment Review of Relevant I have reviewed the following items andrey (where applicable) has been applied. Labs Laboratory Tests Test 08/26/19 07:05 08/26/19 13:00 08/27/19 05:20 Troponin I Quantitative < 0.017 ng/mL (0.000-0.055) < 0.017 ng/mL (0.000-0.055) Sodium Level 139 mmol/L (136-145) Potassium Level 4.4 mmol/L (3.5-5.1) Chloride Level 102 mmol/L (98-107) Carbon Dioxide Level 29 mmol/L (21-32) Anion Gap 8 (6-14) Blood Urea Nitrogen 18 mg/dL (7-20) Creatinine 0.6 mg/dL (0.6-1.0) Estimated GFR (Cockcroft-Gault) 97.7 BUN/Creatinine Ratio 30 (6-20) Glucose Level 73 mg/dL (70-99) Calcium Level 8.6 mg/dL (8.5-10.1) Total Bilirubin 0.4 mg/dL (0.2-1.0) Aspartate Amino Transf (AST/SGOT) 15 U/L (15-37) Alanine Aminotransferase (ALT/SGPT) 25 U/L (14-59) Alkaline Phosphatase 111 U/L (46-116) Total Protein 5.6 g/dL (6.4-8.2) Albumin 2.3 g/dL (3.4-5.0) Albumin/Globulin Ratio 0.7 (1.0-1.7) Laboratory Tests Test 08/27/19 05:20 Sodium Level 139 mmol/L (136-145) Potassium Level 4.4 mmol/L (3.5-5.1) Chloride Level 102 mmol/L (98-107) Carbon Dioxide Level 29 mmol/L (21-32) Anion Gap 8 (6-14) Blood Urea Nitrogen 18 mg/dL (7-20) Creatinine 0.6 mg/dL (0.6-1.0) Estimated GFR (Cockcroft-Gault) 97.7 BUN/Creatinine Ratio 30 (6-20) Glucose Level 73 mg/dL (70-99) Calcium Level 8.6 mg/dL (8.5-10.1) Total Bilirubin 0.4 mg/dL (0.2-1.0) Aspartate Amino Transf (AST/SGOT) 15 U/L (15-37) Alanine Aminotransferase (ALT/SGPT) 25 U/L (14-59) Alkaline Phosphatase 111 U/L (46-116) Total Protein 5.6 g/dL (6.4-8.2) Albumin 2.3 g/dL (3.4-5.0) Albumin/Globulin Ratio 0.7 (1.0-1.7) Microbiology 08/25/19 Urine Culture - Preliminary, Resulted 08/25/19 Urine Culture Result 1 (SANA) - Preliminary, Resulted Medications Current Medications Ondansetron HCl (Zofran) 4 mg STK-MED ONCE .ROUTE ; Start 08/25/19 at 13:12; Stop 08/25/19 at 13:12; Status DC Fentanyl Citrate (Fentanyl 2ml Vial) 50 mcg 1X ONCE IVP Last administered on 08/25/19at 13:30; Start 08/25/19 at 13:15; Stop 08/25/19 at 13:17; Status DC Ondansetron HCl (Zofran) 4 mg 1X ONCE IV Last administered on 08/25/19at 13:15; Start 08/25/19 at 13:45; Stop 08/25/19 at 13:46; Status DC Ondansetron HCl (Zofran) 4 mg PRN Q8HRS PRN IV NAUSEA/VOMITING Last administered on 08/25/19 14:36; Start 08/25/19 at 14:00; Stop 08/26/19 at 13:59; Status DC Morphine Sulfate (Morphine Sulfate) 2 mg PRN Q2HR PRN IV PAIN Last administered on 08/26/19 08:56; Start 08/25/19 at 14:00; Stop 08/26/19 at 13:59; Status DC Albuterol/ Ipratropium (Duoneb) 3 ml RTQID NEB Last administered on 08/26/19 12:41; Start 08/25/19 at 16:00; Stop 08/26/19 at 15:59; Status DC Magnesium Sulfate 50 ml @ 25 mls/hr 1X ONCE IV Last administered on 08/25/19 14:38; Start 08/25/19 at 14:15; Stop 08/25/19 at 16:14; Status DC Labetalol HCl (Normodyne Iv Push) 20 mg PRN Q2HRS PRN IVP ELEVATED BP, SEE COMMENTS Last administered on 08/25/19 14:37; Start 08/25/19 at 14:15 Amlodipine Besylate (Norvasc) 5 mg DAILY PO Last administered on 08/27/19 09:21; Start 08/26/19 at 09:00 Carvedilol (Coreg) 12.5 mg BIDWMEALS PO Last administered on 08/27/19 09:21; Start 08/25/19 at 17:00 Lidocaine (Lidoderm) 1 patch DAILY TD Last administered on 08/27/19 09:19; Start 08/26/19 at 09:00 Aspirin (Ecotrin) 81 mg DAILYWBKFT PO Last administered on 08/27/19 09:21; Start 08/26/19 at 08:00 Miscellaneous (Lidoderm Patch Removal) 1 ea QHS MC Last administered on 08/26/19 21:00; Start 08/25/19 at 21:00 Ceftriaxone Sodium (Rocephin) 1 gm Q24H IVP Last administered on 08/27/19 06:58; Start 08/26/19 at 07:00 Amlodipine Besylate (Norvasc) 5 mg DAILY PO ; Start 08/26/19 at 10:00; Stop 08/26/19 at 14:48; Status DC Carvedilol (Coreg) 12.5 mg BIDWMEALS PO ; Start 08/26/19 at 17:00; Stop 08/26/19 at 09:24; Status DC Diphenhydramine HCl (Benadryl) 25 mg PRN Q4HRS PRN PO ALLERGIES; Start 08/26/19 at 09:15 Donepezil HCl (Aricept) 10 mg QHS PO Last administered on 08/26/19at 20:58; Start 08/26/19 at 21:00 Ferrous Sulfate (Feosol) 325 mg BIDWMEALS PO Last administered on 08/27/19 09:21; Start 08/26/19 at 17:00 Gabapentin (Neurontin) 100 mg TID PO Last administered on 08/27/19 09:20; Start 08/26/19 at 14:00 Nitroglycerin (Nitrostat) 0.4 mg PRN Q5MIN PRN SL CHEST PAIN; Start 08/26/19 at 09:15 Ondansetron HCl (Zofran Odt) 4 mg PRN Q8HRS PRN PO NAUSEA/VOMITING; Start 08/26 at 09:15 Pantoprazole Sodium (Protonix) 40 mg BIDWMEALS PO Last administered on 08/27/19 09:21; Start 08/26/19 at 17:00 Sertraline HCl (Zoloft) 50 mg DAILY PO Last administered on 08/27/19 09:20; Start 08/26/19 at 10:00 Trazodone HCl (Desyrel) 50 mg QHS PO Last administered on 08/26/19 20:58; Start 08/26/19 at 21:00 Ascorbic Acid (Vitamin C) 500 mg DAILY PO Last administered on 08/27/19 09:20; Start 08/26/19 at 10:00 Bupropion HCl (Wellbutrin Xl) 300 mg DAILY PO Last administered on 08/27/19 09:21; Start 08/26/19 at 10:00 Vitamin D (Vitamin D3) 5,000 unit DAILY PO Last administered on 08/27/19 09:20; Start 08/26/19 at 10:00 Morphine Sulfate (Ms Contin) 60 mg TID PO Last administered on 08/27/19 09:22; Start 08/26/19 at 10:00 Multivitamins (Thera M Plus) 1 tab DAILY PO Last administered on 08/27/19 09:20; Start 08/26/19 at 10:00 Oxycodone HCl (Roxicodone) 5 mg PRN Q4HRS PRN PO PAIN Last administered on 08/27/19 07:53; Start 08/26/19 at 09:30; Stop 08/27/19 at 10:18; Status DC Potassium Chloride (Klor-Con) 20 meq BIDWMEALS PO Last administered on 08/27/19 09:20; Start 08/26/19 at 10:00 Iohexol (Omnipaque 350 Mg/ml) 90 ml 1X ONCE IV Last administered on 08/26/19 09:47; Start 08/26/19 at 09:30; Stop 08/26/19 at 09:31; Status DC Lactobacillus Rhamnosus (Culturelle) 1 cap BID PO Last administered on 08/27/19 09:20; Start 08/26/19 at 21:00 Albuterol/ Ipratropium (Duoneb) 3 ml RTQID NEB Last administered on 08/27/19at 11:57; Start 08/26/19 at 20:00 Oxycodone HCl (Roxicodone) 10 mg PRN Q4HRS PRN PO PAIN; Start 08/27/19 at 10:30 Active Scripts Active Carvedilol 6.25 Mg Tablet 25 Mg PO BIDWMEALS Lisinopril 20 Mg Tablet 40 Mg PO DAILY Levaquin (Levofloxacin) 500 Mg Tablet 250 Mg PO DAILY06 7 Days Valium (Diazepam) 5 Mg Tablet 5 Mg PO PRN Q8HRS PRN Hydrocodone-Apap 5-325 (Hydrocodone Bit/Acetaminophen) 1 Each Tablet 1 Tab PO PRN Q4HRS PRN Hydralazine Hcl 25 Mg Tablet 100 Mg PO TID Reported Vitamin D3 (Cholecalciferol (Vitamin D3)) 5,000 Unit Tablet 1 Tab PO DAILY 30 Days Vitamin C (Ascorbic Acid) 500 Mg Capsule.er 1 Cap PO DAILY 30 Days Trazodone Hcl 50 Mg Tablet 1 Tab PO QHS Zoloft (Sertraline Hcl) 50 Mg Tablet 1 Tab PO DAILY Potassium Chloride 20 Meq Tablet.er 1 Tab PO BID 30 Days Pantoprazole Sodium 40 Mg Tablet.dr 40 Mg PO BID Oxycodone Hcl 5 Mg Capsule 5 Mg PO PRN Q4HRS PRN Ondansetron Odt (Ondansetron) 4 Mg Tab.rapdis 1 Tab PO PRN Q8HRS PRN NITROGLYCERIN SubLingual (Nitroglycerin) 0.4 Mg Tab.subl 0.4 Mg SL PRN Q5MIN PRN Multiple Vitamins (Multivitamin) 1 Each Tablet 1 Tab PO DAILY 30 Days Morphine Sulfate Er (Morphine Sulfate) 60 Mg Tablet.er 1 Tab PO TID Gabapentin (Gabapentin) 100 Mg Capsule 100 Mg PO TID Ferrous Sulfate 325 Mg Tablet 1 Tab PO BID Carvedilol (Carvedilol) 12.5 Mg Tablet 12.5 Mg PO BIDWMEALS Bupropion Xl (Bupropion Hcl) 300 Mg Tab.er.24h 1 Tab PO DAILY Benadryl (Diphenhydramine Hcl) 25 Mg Capsule 25 Mg PO Q4HRS PRN Aricept (Donepezil Hcl) 10 Mg Tablet 1 Tab PO QHS 30 Days Amlodipine Besylate 5 Mg Tablet 5 Mg PO DAILY Potassium 25 Meq Tablet Eff (Potassium Bicarbonate/Cit Ac) 25 Meq Tablet.eff 10 Meq PO DAILY Nystatin 1 Each Powder.ea. 1 Each PO Oxybutynin Chloride 5 Mg Tablet 1 Tab PO BID Lidocaine 700 Mg Adh..patch 700 Mg TP Q12HR Aspercreme 10% Cream (Trolamine Salicylate/Aloe Vera) 35.4 Gm Cream..g. 35.4 Gm TP Multi-Vitamin Daily (Multivitamin) 1 Each Tablet 1 Each PO Iron Supplement (Ferrous Sulfate) 325 Mg Tablet 1 Tab PO DAILY Vitamin D3 (Cholecalciferol (Vitamin D3)) 1,000 Unit Tablet 1 Tab PO DAILY Bumetanide 2 Mg Tablet 2 Mg PO [id number] Bumetanide 2 Mg Tablet 2 Tab PO QMWF Mirapex (Pramipexole Di-Hcl) 0.25 Mg Tablet 0.5 Mg PO QHS Vitals/I & O Vital Sign - Last 24 Hours 08/26/19 08/26/19 08/26/19 08/26/19 15:00 16:30 17:51 19:00 Temp 98.3 98.7 98.3 98.7 Pulse 70 70 69 Resp 18 18 B/P (MAP) 135/62 (86) 135/62 157/68 (97) Pulse Ox 93 93 92 O2 Delivery Room Air Room Air Room Air 08/26/19 08/26/19 08/26/19 08/26/19 19:45 19:56 20:40 20:59 Resp 16 16 Pulse Ox 94 95 O2 Delivery Nasal Cannula Nasal Cannula Nasal Cannula Nasal Cannula O2 Flow Rate 3.0 2.0 2.0 3.0 08/26/19 08/27/19 08/27/19 08/27/19 23:08 01:06 03:13 07:00 Temp 98.3 98.0 98.5 98.3 98.0 98.5 Pulse 68 60 60 Resp 16 16 16 16 B/P (MAP) 144/65 (91) 126/59 (81) 144/67 (92) Pulse Ox 98 95 99 O2 Delivery Nasal Cannula Nasal Cannula Nasal Cannula Nasal Cannula O2 Flow Rate 2.0 2.0 3.0 2.0 08/27/19 08/27/19 08/27/19 08/27/19 07:53 08:00 08:28 09:21 Pulse 60 B/P (MAP) 144/67 Pulse Ox 97 99 O2 Delivery Nasal Cannula Nasal Cannula Nasal Cannula O2 Flow Rate 2.0 2.0 2.0 08/27/19 08/27/19 08/27/19 08/27/19 09:21 09:22 10:44 11:57 Temp 98.3 98.3 Pulse 60 67 Resp 18 16 B/P (MAP) 144/67 136/60 (85) Pulse Ox 97 97 97 O2 Delivery Nasal Cannula Nasal Cannula Nasal Cannula O2 Flow Rate 2.0 2.0 2.0 Intake and Output 08/26/19 08/26/19 08/27/19 15:00 23:00 07:00 Intake Total 300 ml 300 ml 300 ml Output Total 300 ml Balance 300 ml 0 ml 300 ml INDER MACKEY MD Aug 27, 2019 13:56
[2019-08-27 15:00] VITALS: BP 150/66
[2019-08-27 19:00] VITALS: BP 142/65
[2019-08-27] MEDS: traZODone 50 MG TABLET. PO SCH (21:00)
[2019-08-27] MEDS: PATCH REMOVAL. MC SCH (21:00)
[2019-08-27] MEDS: DONEPEZIL HCL 10 MG TABLET. PO SCH (21:00)
[2019-08-27] MEDS: oxyCODONE IR 5 MG TABLET PO PRN (22:59)
[2019-08-27 23:09] VITALS: BP 130/63
[2019-08-28] MEDS: oxyCODONE IR 5 MG TABLET PO PRN (03:25)
[2019-08-28 03:37] VITALS: BP 147/70
[2019-08-28] MEDS: cefTRIAXone IV Push 1 GM VIAL. IVP SCH (06:18)
[2019-08-28 07:00] VITALS: BP 148/66
[2019-08-28] MEDS: IPRATRPIUM/ALBUTEROL 0.5/2.5MG 3 ML NEBU. NEB SCH ×3 (08:33→16:20)
[2019-08-28] MEDS: LIDOCAINE (700MG/PATCH) PATCH. TD SCH (09:10)
[2019-08-28] MEDS: MULTIVITAMIN with MINERAL TABLET. PO SCH (09:13)
[2019-08-28] MEDS: amLODIPine BESYLATE 5 MG TABLET PO SCH (09:13)
[2019-08-28] MEDS: LACTOBACILLUS RHAMNOSUS GG 1 CAPSULE. PO SCH (09:13)
[2019-08-28] MEDS: ASPIRIN ENTERIC COATED 81 MG TABLET.DR. PO SCH (09:13)
[2019-08-28] MEDS: PANTOPRAZOLE 40 MG TABLET.DR. PO SCH ×2 (09:13→18:01)
[2019-08-28] MEDS: CHOLECALCIFEROL (VITAMIN D3) 5,000 UNIT CAPSULE PO SCH (09:14)
[2019-08-28] MEDS: SERTRALINE 50 MG TABLET. PO SCH (09:14)
[2019-08-28] MEDS: buPROPion XL 150 MG TAB.ER.24H. PO SCH (09:14)
[2019-08-28] MEDS: CARVEDILOL 12.5 MG TABLET. PO SCH ×2 (09:14→18:00)
[2019-08-28] MEDS: FERROUS SULFATE 325 MG TABLET. PO SCH ×2 (09:14→17:59)
[2019-08-28] MEDS: GABAPENTIN 100 MG CAPSULE. PO SCH ×2 (09:14→15:10)
[2019-08-28] MEDS: MORPHINE ER 30 MG TABLET.ER PO SCH ×2 (09:15→15:11)
[2019-08-28] MEDS: ASCORBIC ACID 500 MG TABLET PO SCH (09:15)
[2019-08-28] MEDS: POTASSIUM CHLORIDE 20 MEQ TABLET.ER. PO SCH ×2 (09:15→18:01)
--- NOTE | 2019-08-28 10:03 | PN ---
DATE: 08/28/2019 SUBJECTIVE: The patient is resting slightly propped up in bed, no apparent distress. She continued to complain of chest pain and difficulty taking a deep breath. She had 3 sets of cardiac enzymes that ruled out myocardial infarction. Her CT angio of the chest showed no evidence of pulmonary emboli, nor did it show pneumothorax, pleural effusion or pericardial effusion. I did order a total body bone scan and once we have the result, we will decide the further management accordingly. PHYSICAL EXAMINATION: GENERAL: When I examined her, she looked pale. No jaundice, cyanosis or thyromegaly. No jugular venous distention. No limb edema. VITAL SIGNS: Her heart rate was 65, blood pressure 148/66, temperature was 98, respiratory rate 20, and oxygen saturation was 95% on 2 liters of oxygen. The rest of clinical exam is stable. LABORATORY WORK: Also stable. ASSESSMENT: 1. Chest pain, atypical, acute myocardial infarction was ruled out. 2. Chest pain is reproducible, most likely musculoskeletal in nature. 3. Urinary tract infection with growth of more than 100,000 colony forming units per mL of Escherichia coli, the sensitivity is still pending. 4. Chronic diastolic congestive heart failure, well compensated. 5. Hyperlipidemia. PLAN: My plan is to continue with IV Rocephin today. Await the result of the bone scan and if it becomes available earlier today and there is nothing to worry about, we can discharge her back to [facility]. CHLOÉ NAPOLES MD DR: MARINA/delfin JOB#: [id number] / [id number]
[2019-08-28 11:00] VITALS: BP 170/71
--- NOTE | 2019-08-28 14:10 | NUR ---
SS following for discharge planning. SS reviewed pt chart. Pt is from [facility], [place], ; fax [phone]. SS contacted [facility] and verified that pt is a LTC resident from there facility and is able to return when medically stable for discharge. Physician currently awaiting bone scan and ECHO results. SS will continue to follow for discharge planning.
--- NOTE | 2019-08-28 14:44 | RAD ---
Examination: BONE SCAN WHOLE BODY History: Pain with breathing., [place] 2 years ago, CHF Comparison/Correlation: 08/26/2019 CT of the chest, 04/28/2016 whole-body bone scan exam Findings: 26 mCi technetium 99m MDP was intravenously administered for purposes of whole body bone scintigraphy. Uptake of radiotracer in the right sternoclavicular joint is present corresponding to degenerative change. Uptake involving the right femoral head is intense enhancement of our exam. Uptake involving the knees and ankles likely representing degenerative changes are identified. Kidneys and urinary bladder are visualized. Impression: No suspicious uptake to suggest bony metastatic disease in the interval. Electronically signed by: Farzad More MD (08/28/2019 2:41 PM) [facility]
--- NOTE | 2019-08-28 14:45 | CARD ---
MR#: [id number] Account#: Date of Study: 08/25/2019 Ordering Physician: Denise: Sylvia Belcher RDCS APPROVED REPORT EXAM: Two-dimensional and M-mode echocardiogram with Doppler and color Doppler. Other Information Quality : Technically LimitedHR: 63bpm Rhythm : NSRTechnically limited study due to body habitus. INDICATION Chest Pain 2D DIMENSIONS RVDd2.9 (2.9-3.5cm)Left Atrium(2D)4.8 (1.6-4.0cm) IVSd1.4 (0.7-1.1cm)Aortic Root(2D)2.6 (2.0-3.7cm) LVDd5.4 (3.9-5.9cm)LVOT Diameter2.1 (1.8-2.4cm) PWd1.1 (0.7-1.1cm)LVDs3.7 (2.5-4.0cm) FS (%) 32.5 %SV86.4 ml LVEF(%)60.2 (>50%) Aortic Valve AoV Peak Marcellus.199.5cm/sAoV VTI47.9cm AO Peak GR.15.9mmHgLVOT VTI 24.91cm AO Mean GR.9mmHgAVA (VTI)1.70cm2 AI P 1/2 Itsi649st Mitral Valve MV E Paapbpwg656.0cm/sMV E Peak Gr.6mmHg MV DECEL [id number] A Uabaqqwo22.6cm/s MV E Mean Gr.3mmHgE/A Ratio1.1 MV A [id number] Tricuspid Valve TR P. Uqrzdrzs096ii/sRAP [id number] TR Peak Gr.71epGdPAXZ99eiPv LEFT VENTRICLE The left ventricle is normal size. There is mild concentric left ventricular hypertrophy. The left ve ntricular systolic function is normal and the ejection fraction is within normal range. The Ejection Fraction is 55-60%. There is normal LV segmental wall motion. Transmitral Doppler flow pattern is Gra de I-abnormal relaxation pattern. RIGHT VENTRICLE The right ventricle is normal size. There is normal right ventricular wall thickness. The right ventr icular systolic function is normal. Device lead noted in RV/RA. ATRIA The left atrium is mildly dilated. The right atrium size is normal. The interatrial septum is intact with no evidence for an atrial septal defect or patent foramen ovale as noted on 2-D or Doppler imagi ng. AORTIC VALVE The aortic valve is mildly thickened. The aortic valve is trileaflet. Doppler and Color Flow revealed trace aortic regurgitation. There is no significant aortic valvular stenosis. There is no aortic beka vular vegetation. MITRAL VALVE Mitral annular calcification is mild. There is no evidence of mitral valve prolapse. There is no mitr al valve stenosis. Doppler and Color-flow revealed mild mitral regurgitation. TRICUSPID VALVE The tricuspid valve is normal in structure and function. Doppler and Color Flow revealed mild to mode rate tricuspid regurgitation. There is moderate pulmonary hypertension. The PA pressure was estimated at 45 mmHg. There is no tricuspid valve prolapse or vegetation. There is no tricuspid valve stenosis . PULMONIC VALVE The pulmonic valve is not well visualized. GREAT VESSELS The aortic root is normal in size. The ascending aorta is normal in size. The IVC is normal in size a nd collapses >50% with inspiration. PERICARDIAL EFFUSION There is a trace pericardial effusion with no hemodynamic significance. Critical Notification Critical Value: No <Conclusion> The left ventricle is normal size. The left ventricular systolic function is normal and the ejection fraction is within normal range. The Ejection Fraction is 55-60%. There is mild concentric left ventricular hypertrophy. There is no significant aortic valvular stenosis. Doppler and Color Flow revealed trace aortic regurgitation. Doppler and Color-flow revealed mild mitral regurgitation. Doppler and Color Flow revealed mild to moderate tricuspid regurgitation. There is moderate pulmonary hypertension. The PA pressure was estimated at 45 mmHg. There is a trace pericardial effusion with no hemodynamic significance. Signed by : Johny Stephens MD Electronically Approved : 08/27/2019 15:19:39
[2019-08-28 15:00] VITALS: BP 164/72
--- NOTE | 2019-08-28 16:51 | NUR ---
SS following up with discharge planning. Discharge orders received for return to [facility], ; fax [phone]. SS phoned and faxed discharge orders and clinical to [facility]. Pt will discharge today and return to [facility] at 1830. [facility] to arrange stretcher transport. Pt, pt's RN, and pt's son notified.
[2019-08-28] MEDS ORDERED: CEFD300C PO (16:52)
[2019-08-28] MEDS ORDERED: OXYC10TA PO (16:52)
--- NOTE | 2019-08-28 16:54 | SNU/HH DC ---
DISCHARGE ORDERS DISCHARGE INFORMATION: DISCHARGE DATE: Aug 28, 2019 FINAL DIAGNOSIS Problems Medical Problems: (1) Chest pain Status: Acute CONDITION ON DISCHARGE: Stable CODE STATUS: Code Status: Full PENITENTIARY: SNF STAY <30 DAYS: Yes POST DISCHARGE ORDERS: ACTIVITY ORDERS: Resume previous activity DIET AFTER DISCHARGE: Regular TREATMENT/EQUIPMENT ORDERS: ADAPTIVE EQUIPMENT NEEDED: Wheelchair Physical Therapy For: Evalulation/Treatment Occupational Therapy For: Evaluation/Treatment DISCHARGE MEDICATIONS: Home Meds Active Scripts Cefdinir (CEFDINIR) 300 Mg Capsule, 1 CAP PO BID for UTI for 5 Days, #10 CAP Prov:CHLOÉ NAPOLES MD 08/28/19 Oxycodone Hcl (OXYCODONE HCL IMMED.RELEASE) 10 Mg Tablet, 10 MG PO Q4H PRN for PAIN for 30 Days, #180 TAB 0 Refills Prov:CHLOÉ NAPOLES MD 08/28/19 Lisinopril (LISINOPRIL) 20 Mg Tablet, 40 MG PO DAILY, #30 TAB 3 Refills Prov:BRYANT GUZMAN MD 04/20/16 Diazepam (VALIUM) 5 Mg Tablet, 5 MG PO PRN Q8HRS PRN for MOUTH PAIN, #30 TAB 0 Refills Prov:BRYANT GUZMAN MD 04/19/16 Hydralazine Hcl (HYDRALAZINE HCL) 25 Mg Tablet, 100 MG PO TID, #120 TAB 2 Refills Prov:BRYANT GUZMAN MD 04/19/16 Reported Medications Cholecalciferol (Vitamin D3) (VITAMIN D3) 5,000 Unit Tablet, 1 TAB PO DAILY for vitamin for 30 Days, #30 TAB 0 Refills 08/25/19 Ascorbic Acid (VITAMIN C) 500 Mg Capsule.er, 1 CAP PO DAILY for vitamin for 30 Days, #30 CAP 0 Refills 08/25/19 Trazodone Hcl (TRAZODONE HCL) 50 Mg Tablet, 1 TAB PO QHS for insomnia, #30 TAB 1 Refill 08/25/19 Sertraline Hcl (ZOLOFT) 50 Mg Tablet, 1 TAB PO DAILY for major depressive disorder, #30 TAB 2 Refills 08/25/19 Potassium Chloride (POTASSIUM CHLORIDE) 20 Meq Tablet.er, 1 TAB PO BID for hypokalemia for 30 Days, #60 TAB 0 Refills 08/25/19 Pantoprazole Sodium (Pantoprazole Sodium) 40 Mg Tablet.dr, 40 MG PO BID for GERD, TAB.SR 08/25/19 Oxycodone Hcl (OXYCODONE HCL) 5 Mg Capsule, 5 MG PO PRN Q4HRS PRN for PAIN, TAB 0 Refills 08/25/19 Ondansetron (ONDANSETRON ODT) 4 Mg Tab.rapdis, 1 TAB PO PRN Q8HRS PRN for NAUSEA/VOMITING, #16 TAB 08/25/19 Nitroglycerin (NITROGLYCERIN SubLingual) 0.4 Mg Tab.subl, 0.4 MG SL PRN Q5MIN PRN for CHEST PAIN, BOTTLE 08/25/19 Multivitamin (MULTIPLE VITAMINS) 1 Each Tablet, 1 TAB PO DAILY for vitamin for 30 Days, #30 TAB 0 Refills 08/25/19 Morphine Sulfate (MORPHINE SULFATE ER) 60 Mg Tablet.er, 1 TAB PO TID for chronic pain, #60 TAB 08/25/19 Gabapentin (GABAPENTIN ) 100 Mg Capsule, 100 MG PO TID for NEUROGENIC PAIN, CAP 08/25/19 Ferrous Sulfate (FERROUS SULFATE) 325 Mg Tablet, 1 TAB PO BID for anemia, #60 TAB 3 Refills 08/25/19 Carvedilol (CARVEDILOL ) 12.5 Mg Tablet, 12.5 MG PO BIDWMEALS for CARDIAC, TAB 08/25/19 Bupropion Hcl (BUPROPION XL) 300 Mg Tab.er.24h, 1 TAB PO DAILY for major depressive disorder, #30 TAB 2 Refills 08/25/19 Diphenhydramine Hcl (BENADRYL) 25 Mg Capsule, 25 MG PO Q4HRS PRN for ALLERGIES, CAP 08/25/19 Donepezil Hcl (ARICEPT) 10 Mg Tablet, 1 TAB PO QHS for dementia for 30 Days, #30 TAB 0 Refills 08/25/19 Amlodipine Besylate (AMLODIPINE BESYLATE) 5 Mg Tablet, 5 MG PO DAILY for HTN, TAB 08/25/19 Potassium Bicarbonate/Cit Ac (POTASSIUM 25 MEQ TABLET EFF) 25 Meq Tablet.eff, 10 MEQ PO DAILY, TAB 04/16/16 Nystatin (NYSTATIN) 1 Each Powder.ea., 1 EACH PO 04/16/16 Oxybutynin Chloride (OXYBUTYNIN CHLORIDE) 5 Mg Tablet, 1 TAB PO BID, #60 TAB 11 Refills 04/16/16 Lidocaine (LIDOCAINE) 700 Mg Adh..patch, 700 MG TP Q12HR 04/16/16 Trolamine Salicylate/Aloe Vera (ASPERCREME 10% CREAM) 35.4 Gm Cream..g., 35.4 GM TP 04/16/16 Multivitamin (MULTI-VITAMIN DAILY) 1 Each Tablet, 1 EACH PO 04/16/16 Ferrous Sulfate (IRON SUPPLEMENT) 325 Mg Tablet, 1 TAB PO DAILY, #30 TAB 10 Refills 04/16/16 Cholecalciferol (Vitamin D3) (VITAMIN D3) 1,000 Unit Tablet, 1 TAB PO DAILY, #30 TAB 5 Refills 04/16/16 Bumetanide (BUMETANIDE) 2 Mg Tablet, 2 MG PO QTUTHSASU 04/16/16 Bumetanide (BUMETANIDE) 2 Mg Tablet, 2 TAB PO QMWF, #60 TAB 5 Refills 04/16/16 Pramipexole Di-Hcl (MIRAPEX) 0.25 Mg Tablet, 0.5 MG PO QHS 04/16/16 Discontinued Scripts Carvedilol (CARVEDILOL ) 6.25 Mg Tablet, 25 MG PO BIDWMEALS, #60 TAB 3 Refills Prov:BRYANT GUZMAN MD 04/20/16 Levofloxacin (LEVAQUIN) 500 Mg Tablet, 250 MG PO DAILY06 for 7 Days, TAB 0 Refills Prov:BRYANT GUZMAN MD 04/20/16 Hydrocodone Bit/Acetaminophen (HYDROCODONE-APAP 5-325 ) 1 Each Tablet, 1 TAB PO PRN Q4HRS PRN for PAIN, #40 TAB 0 Refills Prov:BRYANT GUZMAN MD 04/19/16 CHLOÉ NAPOLES MD Aug 28, 2019 16:53
[2019-08-28] MEDS ORDERED: diazePAM 5 MG TABLET PO PRN (17:30)
[2019-08-28 18:00] VITALS: BP 150/79
--- NOTE | 2019-08-28 18:21 | NUR ---
Discharge Note: AIDAN PERDOMO [address] [place] [address] Discharge instructions and discharge home medications reviewed with Other facility and a copy given. All questions have been answered and understanding verbalized. The following instructions and handouts were given: Discontinued lines and drains: Peripheral IV intact. Patient discharged to Assisted Facility with [facility] horse riding coach or instructor via Stretcher at 1821.
[2019-08-28] MEDS ORDERED: CEFDINIR 300 MG CAPSULE PO SCH (21:00)
[2019-08-28] MEDS ORDERED: LIDOCAINE (700MG/PATCH) PATCH. TP SCH (21:00)
--- NOTE | 2019-08-28 23:43 | DS ---
DATE OF DISCHARGE: 08/28/2019 HOSPITAL COURSE: The patient is a 73-year-old female patient who was admitted from [facility] with a complaint of chest pain. She was extensively investigated in the hospital. She has had 3 sets of cardiac enzymes that ruled out acute myocardial infarction. Her lipid profile showed her serum triglycerides and LDL are well within therapeutic range. Her echocardiogram showed that her left ventricular size is normal, the left ventricular systolic function is normal, ejection fraction within normal range, ejection fraction is 55-60%. She has mild concentric left ventricular hypertrophy. No significant aortic valvular stenosis. The Doppler and color flow revealed trace aortic regurgitation. She has also mild mitral regurgitation and moderate tricuspid regurgitation. She has moderate pulmonary hypertension with pulmonary artery pressure estimated at 45 mmHg. There is a trace of pericardial effusion with no hemodynamic significance. She did have a CT angio of the chest, which basically showed no evidence of pulmonary embolism. She has large right thyroid mass. A similar finding was described on thyroid ultrasound on 03/05/2017. There is cardiomegaly with small pleural effusion, mild patchy atelectasis and infiltrate in both lungs. Her urinalysis showed that the patient has too numerous to count wbc's and her urine culture has grown more than 100,000 colony-forming units per mL of Escherichia coli, sensitive to cephalosporins. We did a total body bone scan this morning and basically it showed that the patient had uptake radioactive in the right sternoclavicular joint present, corresponding degenerative changes uptake involving the right femoral head has intense enhancement of our exam, uptake involving the knees and ankles likely representing degenerative changes. Kidneys and urinary bladder are visualized. The impression that the patient has is no suspicious uptake to suggest bony metastatic disease in the interval. PHYSICAL EXAMINATION: GENERAL: When I saw her, she looked well and was clearly in no apparent respiratory distress, slightly pale. No jaundice, cyanosis or thyromegaly. No jugular venous distention. No limb edema. VITAL SIGNS: Her heart rate was 63, blood pressure was 170/71, temperature was 98.1, respiratory rate was 20 and oxygen saturation was 97% on 3 liters of oxygen. HEAD, EYES, EARS, NOSE AND THROAT: Showed normocephalic, atraumatic. NECK: Supple. HEART: Showed normal first and second heart sounds. No gallop or murmur. CHEST: Clear to auscultation. No crepitation or rhonchi. ABDOMEN: Slightly distended, soft and nontender. NEUROLOGIC: She is awake, alert, responding appropriately. She moves upper extremities to much good extent than the lower extremities. 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 She is mostly bedbound, chair bound. She has marked lymphedema involving her left lower extremity. Her intake over the last 24 hours was 900, output was 300. LABORATORY WORK: As of this morning showed a serum sodium 139, potassium 4.4, chloride 102, bicarbonate 29, anion gap of 8, BUN is 18, creatinine 0.6 and estimated GFR was 98 mL per minute. Her glucose was 73 and calcium was 8.6. Total bilirubin, AST, ALT and alkaline phosphatase were normal. Total protein was 5.6 and albumin was 2.3. She has 3 sets of cardiac enzymes that were negative and showed troponin to be less than 0.017. Her TSH was normal at 1.037. Serum triglycerides were 78, total cholesterol 141, LDL was 78, VLDL was 16, HDL cholesterol 47 and the ratio 3. DISCHARGE MEDICATIONS: The patient was discharged to continue on all her medications. We added cefdinir 300 mg twice a day for 5 days and oxycodone was increased to 10 mg every 4 hours and discontinued her hydrocodone as well as levofloxacin. FINAL DISCHARGE DIAGNOSES: 1. Chest pain, atypical, acute myocardial infarction was ruled out. 2. Chest pain is reproducible, most likely due to musculoskeletal in nature. 3. Urinary tract infection with a growth of more than 100,000 colony-forming units per mL of Escherichia coli, sensitive to cephalosporins. 4. Chronic diastolic congestive heart failure, compensated. 5. Hyperlipidemia. 6. Multiple traumatic injuries, chronic. CHLOÉ NAPOLES MD DR: MARINA/delfin JOB#: [id number] / [id number]
[2019-08-29] MEDS ORDERED: CHOLECALCIFEROL (VITAMIN D3) 1,000 UNIT TABLET PO SCH (09:00)
== END 2019-08-28 18:21 | DRG 205 ==
LOC: ER 12:05 → 2 NORTH 13:52 → OBSVTOIN 19:54
PROVIDERS: ADMIT Internal Medicine; ATTEND Internal Medicine
DX: M94.0 Chondrocostal junction syndrome [Tietze] (principal); E43 Unspecified severe protein-calorie malnutrition; N39.0 Urinary tract infection, site not specified; J98.11 Atelectasis; I50.32 Chronic diastolic (congestive) heart failure; E83.42 Hypomagnesemia; M15.9 Polyosteoarthritis, unspecified; B96.20 Unspecified Escherichia coli [E. coli] as the cause of diseases classified elsewhere; E07.9 Disorder of thyroid, unspecified; E78.5 Hyperlipidemia, unspecified; F03.90 Unspecified dementia, unspecified severity, without behavioral disturbance, psychotic disturbance, mood disturbance, and anxiety; I11.0 Hypertensive heart disease with heart failure; F32.9 Major depressive disorder, single episode, unspecified; I25.10 Atherosclerotic heart disease of native coronary artery without angina pectoris; I25.2 Old myocardial infarction; I45.9 Conduction disorder, unspecified; Z82.49 Family history of ischemic heart disease and other diseases of the circulatory system; Z99.3 Dependence on wheelchair
CPT/HCPCS: 36415; 71045; 71275; 78306; 80053; 80061; 81001; 83690; 83735; 83880; 84443; 84484; 85007; 85025; 85610; 85730; 87086; 87186; 93005; 93306; 93971; 94640; 94760; 96365; 96375; 96376; A9503; G0378; G0379; J0696; J2270; J2405; J3010; J3475; J3490; J7620; Q9967; 99285-25

== ENCOUNTER 2020-04-16 14:39 | Emergency (ER) | payer MEDICARE, OTHER ==
[~2020-04-16] VITALS: Ht 167.6 cm; Wt 90.9 kg
[~2020-04-16 14:39] MED LIST changes: +AMLO5TAB10 PO; +ASCO500C PO; +BUPR300T92 PO; +CARV12.511 PO; +CEFD300C PO; +CHOL500016 PO; +DIPH25CA58 PO; +DONE10TA61 PO; +FERR325T14 PO; +GABA-585 PO; +MORP60TA60 PO; +MULT-121 PO; +NITR0.4T22 SL; +ONDA4TAB12 PO; +OXYC10TA PO; +OXYC5CAP PO; +PANT40TA6 PO; +POTA20TA4 PO; +SERT50TA PO; +TRAZ-118 PO
[2020-04-16] MEDS ORDERED: ONDANSETRON PF 4 MG/2 ML VIAL. IV ONE (15:30)
[2020-04-16] MEDS ORDERED: fentaNYL PF VIAL 100 MCG/2 ML VIAL IV ONE (15:30)
--- NOTE | 2020-04-16 15:50 | PHYS DOC ---
Past Medical History Past Medical History: Anemia, Anxiety, Depression, GERD, Hypertension Additional Past Medical Histor: POOR HISTORIAN Past Surgical History: Other Additional Past Surgical Histo: UNKNOWN SURGICAL HISTORY: PT POOR HISTORIAN Smoking Status: Never Smoker Alcohol Use: None Drug Use: None General Adult EDM: Chief Complaint: MECHANICAL FALL HPI: HPI: Patient is a 74 year old female who presents the emergency department with complaints of pain and swelling to her right ankle, foot, lower leg, and the af ter a fall yesterday. Patient states that she resides at [facility] not see facility [facility] and yesterday she suffered a fall. She states that she was sitting on the bed when she reached for something and fell off of the bed. She denies hitting her head or loss of consciousness. She denies any headache, nausea, or vomiting. In addition, the patient reports pain to the left side of her neck when she turns her head. She states that the nurse at the facility where she resides gave her a pain pill around noon today. Patient reports no relief after taking that medication. She currently rates her pain 10 out of 10 on pain scale, pain is worse with palpation and movement. Review of Systems: Review of Systems: Constitutional: Denies fever or chills. [] HENT: See HPI Respiratory: Denies cough or shortness of breath. [] Cardiovascular: Denies chest pain or edema. [] GI: Denies abdominal pain, nausea, or vomiting Musculoskeletal: See HPI Integument: Denies rash. [] Neurologic: Denies headache Psychiatric: Denies depression or anxiety. [] Heart Score: Risk Factors: Risk Factors: DM, Current or recent (<one month) smoker, HTN, HLP, family history of CAD, obesity. Risk Scores: Score 0 - 3: 2.5% MACE over next 6 weeks - Discharge Home Score 4 - 6: 20.3% MACE over next 6 weeks - Admit for Clinical Observation Score 7 - 10: 72.7% MACE over next 6 weeks - Early Invasive Strategies Current Medications: Current Medications Medications (Trade) Dose Ordered Sig/Cecelia Start Time Stop Time Status Last Admin Dose Admin Fentanyl Citrate (Fentanyl 2ml Vial) 50 mcg 1X ONCE 04/16/20 15:30 04/16/20 15:31 DC 04/16/20 15:42 50 MCG Ondansetron HCl (Zofran) 4 mg 1X ONCE 04/16/20 15:30 04/16/20 15:31 DC 04/16/20 15:41 4 MG Allergies: Allergies: Allergies Coded Allergies Type Severity Reaction Last Updated Verified acetaminophen Allergy Intermediate itching 08/27/19 Yes adhesive Allergy Intermediate 08/25/19 Yes latex Allergy Intermediate 08/25/19 Yes methadone Allergy Intermediate 08/25/19 Yes nickel Allergy Intermediate 08/25/19 Yes oxycodone Allergy Intermediate itching 08/27/19 Yes Physical Exam: PE: Constitutional: Well developed, well nourished, no acute distress, non-toxic appearance. [] HENT: Normocephalic, atraumatic, bilateral external ears normal, oropharynx moist, no oral exudates, nose normal. [] Eyes: PERRLA, EOMI, conjunctiva normal, no discharge. [] Neck: Normal range of motion, no tenderness, supple, no stridor. [] Cardiovascular:Heart rate regular rhythm, no murmur [] Lungs & Thorax: Bilateral breath sounds clear to auscultation [] Abdomen: Bowel sounds normal, soft, no tenderness, no masses, no pulsatile masses. [] Skin: Warm, dry, no erythema, no rash. [] Back: No tenderness, no CVA tenderness. [] Extremities: Diffuse tenderness to palpation of right knee, right tib-fib, right ankle, and right foot, no crepitus, no obvious deformity, 2+ edema noted to lateral right ankle and to right foot, no cyanosis, no clubbing, 2+ pedal pulse on the right side, range of motion testing deferred due to patient pain intolerance, sensation intact Neurologic: Alert and oriented X 3, no focal deficits noted. [] Psychologic: Affect normal, judgement normal, mood normal. [] Current Patient Data: Vital Signs: Vital Signs Date Time Temp Pulse Resp B/P (MAP) Pulse Ox O2 Delivery O2 Flow Rate FiO2 04/16/20 15:42 18 92 Room Air 04/16/20 14:54 98.7 66 157/67 (97) 98.7 EKG: EKG: [] Radiology/Procedures: Radiology/Procedures: []PATIENT: AIDAN PERDOMO EACCOUNT: [id number]#: [id number] : 1945 LOCATION: ER AGE: 74 SEX: F EXAM STATUS: REG ER ORD. PHYSICIAN: MCKAY MARIN APRN REASON: pain after fall PROCEDURE: ANKLE RIGHT 3V Indications: Fall and injury and pain. Three-view right ankle study: There is a nondisplaced transverse fracture of the distal right fibular metadiaphysis and there is a nondisplaced transverse fracture of the distal right tibial metadiaphysis. Diffuse mottling of the bones is seen. Mortise ankle joint is intact. Three-view right foot study: No acute fracture is evident. There is lateral subluxation of the second metatarsal bone with respect to the second cuneiform bone. This is a Lisfranc injury and may be new or old in nature. Generalized mottling of the bones is seen. Two-view study of the right tibia and fibula: No additional acute fracture of the right tibia or fibula is seen. Three-view right knee study: Hyperextension of the right knee is seen. No acute fracture or dislocation is seen otherwise. There is moderate degenerative spurring and mild joint space narrowing of the medial and lateral tibiofemoral joint compartments and the patellofemoral joint compartment. No right knee joint effusion is seen radiographically. Generalized mottling of the bones is seen. Surgical clips are seen medially and posteriorly. IMPRESSION: Nondisplaced fractures of the distal metadiaphysis of the right tibia and fibula. Lisfranc injury of the right foot which may be new or old in nature. Clinical correlation with point tenderness in this area is recommended. Hyperextension of the right knee. Generalized mottling of the bones. This may be due to senile osteoporosis but could be seen with a myelodysplastic infiltrative process such as multiple myeloma. Electronically signed by: Christiano Dunn MD (04/16/2020 3:59 PM) [id number] DICTATED and SIGNED BY: CHRISTIANO DUNN MD DATE: 04/16/20 1559 Course & Med Decision Making: Course & Med Decision Making Pertinent Labs and Imaging studies reviewed. (See chart for details) 74-year-old female presented to the emergency department with complaints of right ankle, right foot, right lower extremity, and right knee pain after fall from the bed yesterday. X-rays revealed: Nondisplaced fractures of the distal metadiaphysis of the right tibia and fibula. Lisfranc injury of the right foot which may be new or old in nature. Clinical correlation with point tenderness in this area is recommended. Hyperextension of the right knee. Generalized mottling of the bones. This may be due to senile osteoporosis but could be seen with a myelodysplastic infiltrative process such as multiple myeloma. [id number] spoke with Dr. Beavers about the patient. He recommends that the patient remains nonweightbearing and is placed in a stirrup splint with orthopedic follow-up. He reports that the Lisfranc injury does not appear to be new, I advised him that there is not specific tenderness to palpation of the foot it is diffuse tenderness to palpation of the foot. Patient discharged back to the nursing facility that she came from with stirrup splint in place, take pain medications as prescribed at the halfway. Return to the ER symptoms worsen. [] Dragon Disclaimer: Dragon Disclaimer: This electronic medical record was generated, in whole or in part, using a voice recognition dictation system. Departure Departure Impression: Primary Impression: Fractured tibia and fibula Qualified Codes: S82.201A - Unspecified fracture of shaft of right tibia, initial encounter for closed fracture; S82.401A - Unspecified fracture of shaft of right fibula, initial encounter for closed fracture Disposition: 01 HOME, SELF-CARE Condition: STABLE Referrals: LEON RAMIREZ MD (PCP) TARYN BEAVERS MD Patient Instructions: Tibial and Fibular Fracture, Adult Additional Instructions: Tylenol, ibuprofen, or your previously prescribed pain medication as needed for discomfort. Wear the splint that was applied, ice, and elevate the affected extremity. No weightbearing until you have been evaluated by the orthopedic physician, call Dr. Beavers in the morning to schedule follow-up appointment. Return to the ER if your symptoms worsen. Justicifation of Admission Dx: Justifications for Admission: Justification of Admission Dx: N/A MCKAY MARIN APRN Apr 16, 2020 15:50
[2020-04-16 16:00] VITALS: BP 141/73
--- NOTE | 2020-04-16 16:02 | RAD ---
Indications: Fall and injury and pain. Three-view right ankle study: There is a nondisplaced transverse fracture of the distal right fibular metadiaphysis and there is a nondisplaced transverse fracture of the distal right tibial metadiaphysis. Diffuse mottling of the bones is seen. Mortise ankle joint is intact. Three-view right foot study: No acute fracture is evident. There is lateral subluxation of the second metatarsal bone with respect to the second cuneiform bone. This is a Lisfranc injury and may be new or old in nature. Generalized mottling of the bones is seen. Two-view study of the right tibia and fibula: No additional acute fracture of the right tibia or fibula is seen. Three-view right knee study: Hyperextension of the right knee is seen. No acute fracture or dislocation is seen otherwise. There is moderate degenerative spurring and mild joint space narrowing of the medial and lateral tibiofemoral joint compartments and the patellofemoral joint compartment. No right knee joint effusion is seen radiographically. Generalized mottling of the bones is seen. Surgical clips are seen medially and posteriorly. IMPRESSION: Nondisplaced fractures of the distal metadiaphysis of the right tibia and fibula. Lisfranc injury of the right foot which may be new or old in nature. Clinical correlation with point tenderness in this area is recommended. Hyperextension of the right knee. Generalized mottling of the bones. This may be due to senile osteoporosis but could be seen with a myelodysplastic infiltrative process such as multiple myeloma. Electronically signed by: Giorgi Dunn MD (04/16/2020 3:59 PM) [id number]
== END 2020-04-16 19:08 | disposition home or self-care (01) ==
LOC: ER 14:39
DX: S82.391A Other fracture of lower end of right tibia, initial encounter for closed fracture (principal); S82.491A Other fracture of shaft of right fibula, initial encounter for closed fracture; F41.9 Anxiety disorder, unspecified; F32.9 Major depressive disorder, single episode, unspecified; K21.9 Gastro-esophageal reflux disease without esophagitis; I10 Essential (primary) hypertension; Z98.890 Other specified postprocedural states; Z91.040 Latex allergy status; Z88.5 Allergy status to narcotic agent; Z88.8 Allergy status to other drugs, medicaments and biological substances; W18.39XA Other fall on same level, initial encounter; Y93.89 Activity, other specified; Y92.89 Other specified places as the place of occurrence of the external cause; Y99.8 Other external cause status
CPT/HCPCS: 29515; 73562; 73590; 73610; 73630; 96374; 96375; 99284; J2405; J3010

== ENCOUNTER 2020-10-06 01:18 | Emergency (ER) | payer MEDICARE, OTHER ==
[~2020-10-06] VITALS: Ht 167.6 cm; Wt 73.8 kg
[~2020-10-06 01:18] MED LIST changes: +AMLO-186 PO; -AMLO5TAB10 PO
[2020-10-06 02:26] LABS: BASO % 0 % (0-3); EOS # 0.2 x10^3/uL (0.0-0.7); EOS % 4 % (0-3); HEMATOCRIT 40.3 % (36.0-47.0); HEMOGLOBIN 13.6 g/dL (12.0-15.5); LYMPH # 0.7 x10^3/uL (1.0-4.8); LYMPH % 16 % (24-48); MEAN CORPUSCULAR HEMOGLOBIN 30 pg (25-35); MEAN CORPUSCULAR HGB CONC 34 g/dL (31-37); MEAN CORPUSCULAR VOLUME 90 fL (79-100); MONO # 0.3 x10^3/uL (0.0-1.1); MONO % 7 % (0-9); NEUT # 3.2 x10^3/uL (1.8-7.7); NEUT % 74 % (31-73); PLATELET COUNT 188 x10^3/uL (140-400); RED BLOOD COUNT 4.46 x10^6/uL (3.50-5.40); RED CELL DISTRIBUTION WIDTH 12.6 % (11.5-14.5); WHITE BLOOD COUNT 4.4 x10^3/uL (4.0-11.0)
[2020-10-06 02:32] LABS: CALCIUM 9.2 mg/dL (8.5-10.1); CREATININE 0.8 mg/dL (0.6-1.0); GFR 69.9; POTASSIUM 4.3 mmol/L (3.5-5.1)
--- NOTE | 2020-10-06 02:36 | RAD ---
CT HEAD AND C-SPINE WO dated 10/06/2020 1:36 AM. Comparison: None. Clinical Indication: Reason: ams / Spl. Instructions: / History: , HEAD AND NECK PAIN Technical factors: Contiguous 5 mm axial images of the head were obtained from the skullbase to the v ertex. No contrast was administered. In addition, 3 mm axial images of the cervical spine were acquir ed with thin cut coronal and sagittal reconstructions. One or more of the following individualized dose reduction techniques were utilized for this examinat ion: 1. Automated exposure control 2. Adjustment of the mA and/or kV according to patient size 3. Use of iterative reconstruction technique Findings head: Ventricles and sulci are mildly prominent for age. No midline shift or mass effect. Mild to moderate patchy low density in the deep/subcortical periventricular white matter. No hemorrhage or extra axial collection. Posterior fossa and brainstem unremarkable. Visualized paranasal sinuses and mastoid air cells are clear. No apparent calvarial abnormality. IMPRESSION HEAD: 1. No evidence of acute intracranial hemorrhage or mass. 2. Mild chronic small vessel ischemic changes and atrophy. Findings cervical spine: Images were acquired from the skull base to T2. Slight anterolisthesis of C2 on C3. Sagittal alignmen t is otherwise anatomic. Vertebral body heights are maintained. No prevertebral soft tissue swelling. Posterior elements are intact. No evidence of fracture. Moderate endplate hypertrophic changes throughout with moderate multilevel uncovertebral spurring and facet arthropathy. There is resultant moderate left foraminal stenosis at C5-C6 and C3-C4. Milder de grees of foraminal narrowing at the remaining levels. Mild central stenosis at C5-C6. No focal disc h erniation. There is a heterogeneous mass at the right lobe thyroid gland measures up to 4.3 cm. Visually soft ti ssue structures are otherwise unremarkable. Limited images of the lung apices are clear. . IMPRESSION CERVICAL SPINE: 1. No evidence of fracture or malalignment. 2. Moderate multilevel spondylosis. 3. Heterogeneous mass at the right lobe thyroid gland measuring up to 4.3 cm, indeterminate. Thyroid ultrasound would better evaluate. Electronically signed by: Azael Bess MD (10/06/2020 2:33 AM) [facility]
[2020-10-06 02:40] LABS: ALBUMIN 2.9 g/dL (3.4-5.0); ALBUMIN/GLOBULIN RATIO 0.7 (1.0-1.7); TOTAL BILIRUBIN 0.5 mg/dL (0.2-1.0); TOTAL PROTEIN 7.1 g/dL (6.4-8.2)
[2020-10-06 02:51] LABS: BILIRUBIN,URINE NEGATIVE (NEG); CLARITY,URINE CLEAR; COLOR,URINE YELLOW; NITRITE,URINE NEGATIVE (NEG); PH,URINE 5.5 (<5.0-8.0); PROTEIN,URINE NEGATIVE (NEG-TRACE)
--- NOTE | 2020-10-06 02:54 | PHYS DOC ---
Past Medical History Past Medical History: Anemia, Anxiety, Depression, GERD, Hypertension, Other Additional Past Medical Histor: POOR HISTORIAN Past Surgical History: Other Additional Past Surgical Histo: UNKNOWN SURGICAL HISTORY: PT POOR HISTORIAN Smoking Status: Never Smoker Alcohol Use: None Drug Use: None General Adult EDM: Chief Complaint: ALTERED MENTAL STATUS HPI: HPI: 74 yo F PMH HFpEF w/PM, seizure disorder, glaucoma, hypertension, hyperlipi demia, anemia, anxiety/depression and GERD, [facility] with concerns for altered mental status. EMS reports that patient fell approximately 6 days ago off of a 3 foot bed and hit her head but did not lose consciousness. They report she is usually A&Ox4 but today only x3. In ED patient complains of right knee and right ankle pain but is unsure when she fell , believes this was 3 weeks ago. Paperwork was reviewed and patient started on Bactrim last night prior to ED arrival for UTI. Medication list reviewed and is not on any anticoagulants. Review of Systems: Review of Systems: Constitutional: Denies fever or chills. [] Eyes: Denies change in visual acuity. [] HENT: Denies nasal congestion or sore throat. [] Respiratory: Denies cough or shortness of breath. [] Cardiovascular: Denies chest pain or edema. [] GI: Denies abdominal pain, nausea, vomiting, bloody stools or diarrhea. [] : Denies dysuria or hematuria Musculoskeletal: Denies back pain or CVA tenderness Integument: Denies rash. [] Neurologic: Denies headache, focal weakness or sensory changes. [] Endocrine: Denies polyuria or polydipsia. [] Lymphatic: Denies swollen glands. [] Psychiatric: Denies depression or anxiety. [] Heart Score: Risk Factors: Risk Factors: DM, Current or recent (<one month) smoker, HTN, HLP, family history of CAD, obesity. Risk Scores: Score 0 - 3: 2.5% MACE over next 6 weeks - Discharge Home Score 4 - 6: 20.3% MACE over next 6 weeks - Admit for Clinical Observation Score 7 - 10: 72.7% MACE over next 6 weeks - Early Invasive Strategies Allergies: Allergies: Allergies Coded Allergies Type Severity Reaction Last Updated Verified acetaminophen Allergy Intermediate itching 08/27/19 Yes adhesive Allergy Intermediate 08/25/19 Yes latex Allergy Intermediate 08/25/19 Yes methadone Allergy Intermediate 08/25/19 Yes nickel Allergy Intermediate 08/25/19 Yes oxycodone Allergy Intermediate itching 08/27/19 Yes Physical Exam: PE: Constitutional: Well developed, well nourished, no acute distress, non-toxic appearance, afebrile HENT: Normocephalic, atraumatic, dry mucous membranes Eyes: EOMI, conjunctiva normal, no discharge. Neck: Normal range of motion, supple, Cardiovascular: S1/2 present, regular rhythm Lungs & Thorax: Speaking in full sentences, bilateral equal chest rise, no tachypnea or increased work of breathing Abdomen: soft, no tenderness, Skin: Warm, dry, no erythema, no rash. 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 [] Psychologic: Affect normal, judgement normal, mood normal. [] *per RN - diaper changes and brown stool was in pts' vagina, stool was removed and area fully cleaned before sterilely inserting straight cath for urinalysis Current Patient Data: Labs: Laboratory Tests Test 10/06/20 02:16 White Blood Count 4.4 x10^3/uL (4.0-11.0) Red Blood Count 4.46 x10^6/uL (3.50-5.40) Hemoglobin 13.6 g/dL (12.0-15.5) Hematocrit 40.3 % (36.0-47.0) Mean Corpuscular Volume 90 fL (79-100) Mean Corpuscular Hemoglobin 30 pg (25-35) Mean Corpuscular Hemoglobin Concent 34 g/dL (31-37) Red Cell Distribution Width 12.6 % (11.5-14.5) Platelet Count 188 x10^3/uL (140-400) Neutrophils (%) (Auto) 74 % (31-73) H Lymphocytes (%) (Auto) 16 % (24-48) L Monocytes (%) (Auto) 7 % (0-9) Eosinophils (%) (Auto) 4 % (0-3) H Basophils (%) (Auto) 0 % (0-3) Neutrophils # (Auto) 3.2 x10^3/uL (1.8-7.7) Lymphocytes # (Auto) 0.7 x10^3/uL (1.0-4.8) L Monocytes # (Auto) 0.3 x10^3/uL (0.0-1.1) Eosinophils # (Auto) 0.2 x10^3/uL (0.0-0.7) Basophils # (Auto) 0.0 x10^3/uL (0.0-0.2) Sodium Level 138 mmol/L (136-145) Potassium Level 4.3 mmol/L (3.5-5.1) Chloride Level 102 mmol/L (98-107) Carbon Dioxide Level 30 mmol/L (21-32) Anion Gap 6 (6-14) Blood Urea Nitrogen 14 mg/dL (7-20) Creatinine 0.8 mg/dL (0.6-1.0) Estimated GFR (Cockcroft-Gault) 69.9 BUN/Creatinine Ratio 18 (6-20) Glucose Level 93 mg/dL (70-99) Calcium Level 9.2 mg/dL (8.5-10.1) Total Bilirubin 0.5 mg/dL (0.2-1.0) Aspartate Amino Transferase (AST) 17 U/L (15-37) Alanine Aminotransferase (ALT) 17 U/L (14-59) Alkaline Phosphatase 108 U/L (46-116) Troponin I Quantitative < 0.017 ng/mL (0.000-0.055) Total Protein 7.1 g/dL (6.4-8.2) Albumin 2.9 g/dL (3.4-5.0) L Albumin/Globulin Ratio 0.7 (1.0-1.7) L Laboratory Tests 10/06/20 02:16 Laboratory Tests 10/06/20 02:16 Vital Signs: Vital Signs Date Time Temp Pulse Resp B/P (MAP) Pulse Ox O2 Delivery O2 Flow Rate FiO2 10/06/20 01:30 99.1 62 18 173/72 (105) 97 Room Air 99.1 EKG: EKG: Ventricular atrial paced rhythm at 60 bpm, left axis deviation, QRS 212, QTC 511, T wave inversion aVL, no ST elevations or ST depressions that meet modified scarbossas criteria, patient with no active chest pain Radiology/Procedures: Radiology/Procedures: IMAGING REPORT Signed PATIENT: AIDAN PERDOMO EACCOUNT: [id number] : 1945 LOCATION: ER AGE: 74 SEX: F EXAM STATUS: REG ER ORD. PHYSICIAN: DONALD SILVA DO REASON: ams PROCEDURE: CT HEAD AND CERVICAL SPINE WO CT HEAD AND C-SPINE WO dated 10/06/2020 1:36 AM. Comparison: None. Clinical Indication: Reason: ams / Spl. Instructions: / History: , HEAD AND NECK PAIN Technical factors: Contiguous 5 mm axial images of the head were obtained from the skullbase to the vertex. No contrast was administered. In addition, 3 mm axial images of the cervical spine were acquired with thin cut coronal and sagittal reconstructions. One or more of the following individualized dose reduction techniques were utilized for this examination: 1. Automated exposure control 2. Adjustment of the mA and/or kV according to patient size 3. Use of iterative reconstruction technique Findings head: Ventricles and sulci are mildly prominent for age. No midline shift or mass effect. Mild to moderate patchy low density in the deep/subcortical periventricular white matter. No hemorrhage or extra axial collection. Posterior fossa and brainstem unremarkable. Visualized paranasal sinuses and mastoid air cells are clear. No apparent calvarial abnormality. IMPRESSION HEAD: 1. No evidence of acute intracranial hemorrhage or mass. 2. Mild chronic small vessel ischemic changes and atrophy. Findings cervical spine: Images were acquired from the skull base to T2. Slight anterolisthesis of C2 on C3. Sagittal alignment is otherwise anatomic. Vertebral body heights are maintained. No prevertebral soft tissue swelling. Posterior elements are intact. No evidence of fracture. Moderate endplate hypertrophic changes throughout with moderate multilevel un covertebral spurring and facet arthropathy. There is resultant moderate left foraminal stenosis at C5-C6 and C3-C4. Milder degrees of foraminal narrowing at the remaining levels. Mild central stenosis at C5-C6. No focal disc herniation. There is a heterogeneous mass at the right lobe thyroid gland measures up to 4.3 cm. Visually soft tissue structures are otherwise unremarkable. Limited images of the lung apices are clear. . IMPRESSION CERVICAL SPINE: 1. No evidence of fracture or malalignment. 2. Moderate multilevel spondylosis. 3. Heterogeneous mass at the right lobe thyroid gland measuring up to 4.3 cm, indeterminate. Thyroid ultrasound would better evaluate. Electronically signed by: Azael Bess MD (10/06/2020 2:33 AM) [facility] DICTATED and SIGNED BY: AZAEL BESS MD DATE: 10/06/20 [id number] 0 IMAGING REPORT Signed PATIENT: AIDAN PERDOMO EACCOUNT: [id number] : 1945 LOCATION: ER AGE: 74 SEX: F EXAM STATUS: REG ER ORD. PHYSICIAN: DONALD SILVA DO REASON: ams PROCEDURE: CHEST AP ONLY Single view chest dated 10/06/2020. Comparison made to 08/25/2019. CLINICAL INDICATION: Altered mental status. FINDINGS: Single upright portable exam performed. Heart and mediastinal contours are stable. There is right-sided port and right subclavian pacer in place, unchanged. Prominent perihilar linear markings. No consolidation or pleural effusion. No pneumothorax. IMPRESSION: 1. No acute radiographic abnormality. Stable findings compared to 08/25/2019 Electronically signed by: Azael Bess MD (10/06/2020 3:11 AM) [facility] DICTATED and SIGNED BY: AZAEL BESS MD DATE: 10/06/[id number] 0 IMAGING REPORT Signed PATIENT: AIDAN PERDOMO EACCOUNT: [id number] : 1945 LOCATION: ER AGE: 74 SEX: F EXAM STATUS: REG ER ORD. PHYSICIAN: DONALD SILVA DO REASON: ams PROCEDURE: KNEE RIGHT 3V Two-view right knee and three-view right ankle dated 10/06/2020. No comparison available. CLINICAL INDICATION: Altered mental status. Pain. FINDINGS: 3 views the right knee show normal bony alignment. Nondisplaced fracture of the proximal fibular head/neck. There is moderate tricompartmental hypertrophic change with prominent marginal osteophytes. Small joint effusion. No fat. There is diffuse soft tissue swelling with surgical clips. Vague sclerotic changes of the distal femur. 2 views of the left ankle show generalized osteopenia. There are sclerotic changes of the calcaneus, distal tibia and talus. Small cortical step-off at the dorsal cortex of the distal one third shaft tibia is seen on the lateral view. No displaced fracture. There is diffuse soft tissue swelling. IMPRESSION: 1. Nondisplaced fracture of the proximal fibula. 2. Cortical step-off at the distal one third shaft tibia is seen only on the lateral view. This could be related to subacute or remote injury or stress fracture. Acute nondisplaced fracture not excluded. If indicated, MRI would better evaluate. 3. Degenerative changes as described above. 4. Nonspecific sclerotic changes of the distal tibia, distal femur and hindfoot. Consider osteonecrosis. Electronically signed by: Azael Bess MD (10/06/2020 3:17 AM) [facility] [place] DICTATED and SIGNED BY: AZAEL BESS MD DATE: 10/06/20 [id number] 0 Course & Med Decision Making: Course & Med Decision Making Pertinent Labs and Imaging studies reviewed. (See chart for details) Sent to the ED with concern for altered mental status. Patient very appropriate on my exam-only disorientation as timeline of falling out of her bed. Patient is on antibiotics that were started less than 24 hours ago for urinary tract infection, suspect delirium. Concern for nondisplaced right acute fibular head fracture? Although pe is not very reliable. No new swelling or visible deformity. Pt with no severe pain, is comfortable even with right knee/fibular palpation. Will treat with immobilization and analgesia, rice instructions. Will discharge home with strict ED return precautions were given for repeat head injuries, severe pain, dehydration or joint deformity. Encouraged urgent outpatient follow-up with PMD and ortho. Life-threatening processes were considered but are low suspicion at this time, given history, physical exam and ED workup. Pt was educated on all prescription medications and adverse effects. All patient's questions were answered and pt was stable at time of discharge. Life/limb-threatening differential includes but is not limited to, intracranial hemorrhage, diffuse axonal injury, spinal cord syndrome, unstable cervical fracture or SCIWORA, fractures or joint dislocations, neurovascular injuries, organ injury or laceration, pneumothorax, pneumoperitoneum, delirium, toxidrome, infection/sepsis/shock, etc. I spoken with the patient and her caregivers. I explained the patient's condition, diagnoses and treatment plan based on the information available to me at this time. I have answered the patient and her caregiver's questions and addressed any concerns. The patient and her caregivers have a good understanding of patient's diagnosis, condition and treatment plan as can be expected at this point. Vital signs have been stable. Patient's condition is stable and appropriate for discharge from the emergency department. Patient will pursue further outpatient evaluation with primary care physician or other designated or consulting physician as outlined in the discharge instructions. The patient and/or caregivers are agreeable to this plan of care and follow-up instructions have been explained in detail. The patient and/or caregivers have received these instructions in written form and have expressed an understanding of the discharge instructions. The patient and/or caregivers are aware that any significant change of condition or worsening of symptoms should prompt immediate return to this or the closest emergency department or call to [email or web address] Disclaimer: Chu Disclaimer: This electronic medical record was generated, in whole or in part, using a voice recognition dictation system. Departure Departure Impression: Primary Impression: Chronic pain of right lower extremity Additional Impressions: Risk for falls Fibula fracture Disposition: 01 DC HOME SELF CARE/HOMELESS Condition: STABLE Referrals: LEON RAMIREZ MD (PCP) in 24- 48 hours Patient Instructions: Delirium, Fibular Fracture, Ankle, Adult, Undisplaced, Treated with Immobilization Additional Instructions: FOLLOW UP WITH ORTHOPEDICS: Orthopaedic Sports Medicine Orthopaedic Surgery [facility] Address: [address] [place] [id number] EMERGENCY DEPARTMENT GENERAL DISCHARGE INSTRUCTIONS Thank you for coming to [facility] Emergency Department (ED) today and trusting us with you care. We trust that you had a positive experience in our Emergency Department. If you wish to speak to the department management, you may call the Director at [phone]. YOUR FOLLOW UP INSTRUCTIONS ARE FOLLOWS: 1. Do you have a private Doctor? If you do not have a private doctor, please ask for a resource list of physicians or clinics that may be able to assist you with follow up care. 2. The Emergency Physicain has interpreted your x-rays. The X-Ray specialist will also review them. If there is a change in the findings, you will be notified in 48 hours when at all possible. 3. A lab test or culture has been done, your results will be reviewed and you will be notified if you need a change in treatment. ADDITIONAL INSTRUCTIONS AND INFORMATION: 1. Your care today has been supervised by a physician who is specially trained in emergency care. Many problems require more than one evaluation for a complete diagnosis and treatment. We recommend that you schedule your follow up appointment as recommended to ensure complete treatment of you illness or injury. If you are unable to obtain follow up care and continue to have a problem, or if your condition worsens, we recommend that you return to the ED. 2. We are not able to safely determine your condition over the phone nor are we able to give sound medical advice over the phone. For these safety reasons, if you call for medical advice we will ask you to come to the ED for further evaluation. 3. If you have any questions regarding these discharge instructions please call the ED at [phone]. SAFETY INFORMATION: In the interest of safety, wellness, and injury prevention; we encourage you to wear your sealbelt, if you smoke; quite smoking, and we encourage family to use a protective helmet for bicycling and other sporting events that present an increased risk for head injury. IF YOUR SYMPTOMS WORSEN OR NEW SYMPTOMS DEVELOP, OR YOU HAVE CONCERNS ABOUT YOUR CONDITION; OR IF YOUR CONDITION WORSENS WHILE YOU ARE WAITING FOR YOUR FOLLOW UP APPOINTMENT; EITHER CONTACT YOUR PRIMARY CARE DOCTOR, THE PHYSICIAN WHOSE NAME AND NUMBER YOU WERE GIVEN, OR RETURN TO THE ED IMMEDIATELY. [facility]ON[facility]D DO Oct 06, 2020 02:54
[2020-10-06 02:58] LABS: AMORPHOUS SEDIMENT,UR PRESENT /HPF; BACTERIA,URINE 0 /HPF (0-FEW); GRANULAR CASTS,URINE FEW /HPF; HYALINE CASTS, URINE FEW /HPF; WBC,URINE RARE /HPF (0-4)
--- NOTE | 2020-10-06 03:13 | RAD ---
Single view chest dated 10/06/2020. Comparison made to 08/25/2019. CLINICAL INDICATION: Altered mental status. FINDINGS: Single upright portable exam performed. Heart and mediastinal contours are stable. There is right-dustin ed port and right subclavian pacer in place, unchanged. Prominent perihilar linear markings. No conso lidation or pleural effusion. No pneumothorax. IMPRESSION: 1. No acute radiographic abnormality. Stable findings compared to 08/25/2019 Electronically signed by: Azael Bess MD (10/06/2020 3:11 AM) [facility]
--- NOTE | 2020-10-06 03:19 | RAD ---
Two-view right knee and three-view right ankle dated 10/06/2020. No comparison available. CLINICAL INDICATION: Altered mental status. Pain. FINDINGS: 3 views the right knee show normal bony alignment. Nondisplaced fracture of the proximal fibular head /neck. There is moderate tricompartmental hypertrophic change with prominent marginal osteophytes. Sm all joint effusion. No fat. There is diffuse soft tissue swelling with surgical clips. Vague scleroti c changes of the distal femur. 2 views of the left ankle show generalized osteopenia. There are sclerotic changes of the calcaneus, distal tibia and talus. Small cortical step-off at the dorsal cortex of the distal one third shaft ti alfred is seen on the lateral view. No displaced fracture. There is diffuse soft tissue swelling. IMPRESSION: 1. Nondisplaced fracture of the proximal fibula. 2. Cortical step-off at the distal one third shaft tibia is seen only on the lateral view. This could be related to subacute or remote injury or stress fracture. Acute nondisplaced fracture not excluded . If indicated, MRI would better evaluate. 3. Degenerative changes as described above. 4. Nonspecific sclerotic changes of the distal tibia, distal femur and hindfoot. Consider osteonecros is. Electronically signed by: Azael Bess MD (10/06/2020 3:17 AM) [facility]
[2020-10-06 03:45] VITALS: BP 191/82
[2020-10-06] MEDS ORDERED: oxyCODONE IR 5 MG TABLET PO ONE (04:00)
--- NOTE | 2020-10-07 05:03 | EKG ---
[facility] [address] [place] [address] Test Date: 2020-10-06 Test Time: 01:41:25 Pat Name: AIDAN PERDOMO Department: Room: Gender: F Patient Clerical Assistant: : 1945 Requested By: DONALD SILVA Order Number: [id number] Reading MD: Measurements Intervals [place] Rate: 60 P: NC: QRS: -79 QRSD: 212 T: 119 QT: 506 QTc: 511 Interpretive Statements IRREGULAR RHYTHM, NO P-WAVE FOUND ABNORMAL LEFT AXIS DEVIATION NON SPECIFIC INTRAVENTRICULAR BLOCK QRS(T) CONTOUR ABNORMALITY CONSISTENT WITH ANTEROSEPTAL INFARCT POSSIBLY RECENT ABNORMAL ECG RI6.01 No previous ECG available for comparison
== END 2020-10-06 04:35 | disposition home or self-care (01) ==
LOC: ER 01:18
DX: S82.831A Other fracture of upper and lower end of right fibula, initial encounter for closed fracture (principal); R41.82 Altered mental status, unspecified; M47.812 Spondylosis without myelopathy or radiculopathy, cervical region; G40.909 Epilepsy, unspecified, not intractable, without status epilepticus; I10 Essential (primary) hypertension; E78.5 Hyperlipidemia, unspecified; K21.9 Gastro-esophageal reflux disease without esophagitis; G89.29 Other chronic pain; M79.604 Pain in right leg; Z91.040 Latex allergy status; Z88.5 Allergy status to narcotic agent; Z88.6 Allergy status to analgesic agent; Z88.8 Allergy status to other drugs, medicaments and biological substances; W06.XXXA Fall from bed, initial encounter; Y93.89 Activity, other specified; Y92.89 Other specified places as the place of occurrence of the external cause; Y99.8 Other external cause status
CPT/HCPCS: 36415; 70450; 71045; 72125; 73562; 73600; 80053; 81001; 84484; 85025; 93005; 99285; P9612

== ENCOUNTER 2021-08-05 14:00 | Inpatient (IN) | payer MEDICARE, OTHER ==
[~2021-08-05] VITALS: Ht 157.5 cm; Wt 74.0 kg
[~2021-08-05 14:00] MED LIST changes: +AMLO-187 PO; +ASPI-886 PO; +ATOR20TA58 PO; +BUPR100T7 PO; +IBUP-1007 PO; -LISI-334 PO; +LISI-517 PO; +LISI20TA18 PO; +METH-561 PO; +NYST15PO9 TP; +OMEP20CA16 PO; +ONDA-84 PO; +OXYC20TA PO; +POLY17PO29 PO; +SENN8.6T11 PO; +SERT-268 PO; +ZOLP5TAB PO
[2021-08-05] MEDS ORDERED: IV NORMAL SALINE 1000ML BAG 1,000 ML IV ONE ×2 (14:30→17:15)
[2021-08-05 14:55] LABS: BASO % 0 % (0-3); EOS % 0 % (0-3); HEMATOCRIT 44.4 % (36.0-47.0); HEMOGLOBIN 14.6 g/dL (12.0-15.5); LYMPH # 0.4 x10^3/uL (1.0-4.8); LYMPH % 3 % (24-48); MEAN CORPUSCULAR HEMOGLOBIN 31 pg (25-35); MEAN CORPUSCULAR HGB CONC 33 g/dL (31-37); MEAN CORPUSCULAR VOLUME 96 fL (79-100); MONO # 0.4 x10^3/uL (0.0-1.1); MONO % 3 % (0-9); NEUT # 13.8 x10^3/uL (1.8-7.7); NEUT % 94 % (31-73); PLATELET COUNT 223 x10^3/uL (140-400); RED BLOOD COUNT 4.64 x10^6/uL (3.50-5.40); RED CELL DISTRIBUTION WIDTH 12.9 % (11.5-14.5); WHITE BLOOD COUNT 14.7 x10^3/uL (4.0-11.0)
[2021-08-05 15:11] LABS: % BANDS 12 % (0-9); % LYMPHS 2 % (24-48); PLT ESTIMATE ADEQUATE (ADEQUATE)
[2021-08-05 15:12] LABS: % MONOS 2 % (0-10); % SEGS 84 % (35-66)
--- NOTE | 2021-08-05 15:24 | RAD ---
AP chest. HISTORY: Altered mental status AP view was taken of the chest. There is a Port-A-Cath on the right extending to the superior vena ca va. There is a right pacemaker unchanged. No acute infiltrates are noted. Is no pleural effusion. IMPRESSION: 1. No acute infiltrates. Electronically signed by: Valente Borges MD (08/05/2021 3:22 PM) [id number]
--- NOTE | 2021-08-05 15:27 | RAD ---
EXAM: CT Head without IV contrast CLINICAL HISTORY: Reason: AMS / Spl. Instructions: / History: COMPARISON: 07/26/2021 TECHNIQUE: Routine CT of the head without contrast. PQRS compliance statement - One or more of the following individualized dose reduction techniques wer e utilized for this study: 1. Automated exposure control 2. Adjustment of the mA and/or kV according to patient size 3. Use of iterative reconstruction technique FINDINGS: There is no evidence of hemorrhage, mass or extra-axial fluid collection. Munson-white differentiation is maintained with no evidence of edema. Subcortical, periventricular as w ell as deep white matter hypoattenuation likely changes of chronic small vessel disease. There is no mass effect or shift of the intracranial structures. The ventricles and cerebral sulci are prominent for the patients stated age consistent with generaliz ed cerebral volume loss. The cerebellum and brainstem are unremarkable. The calvarium demonstrates no evidence of fracture or focal lesion. There is normal aeration of the visualized paranasal sinuses and mastoid air cells. The visualized portions of the orbits are normal. IMPRESSION: No evidence for acute intracranial process. White matter changes likely chronic small vessel disease. The ventricles and cerebral sulci are prominent for the patients stated age consistent with generaliz ed cerebral volume loss. Electronically signed by: Jamshid Rolon MD (08/05/2021 3:25 PM) NAWAF
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
[2021-08-05 15:58] LABS: BILIRUBIN,URINE SMALL (NEG); CLARITY,URINE CLOUDY; COLOR,URINE AMBER; NITRITE,URINE NEGATIVE (NEG); PH,URINE 5.5 (<5.0-8.0); PROTEIN,URINE 30 mg/dL (NEG-TRACE); UROBILINOGEN,URINE 0.2 mg/dL (0.2 mg/dL)
[2021-08-05 16:10] LABS: BACTERIA,URINE FEW /HPF (0-FEW); RBC,URINE OCC /HPF (0-2); WBC,URINE 20-40 /HPF (0-4)
[2021-08-05 16:11] LABS: YEAST,URINE PRESENT /HPF
[2021-08-05 16:39] LABS: CALCIUM 7.4 mg/dL (8.5-10.1); CREATININE 1.9 mg/dL (0.6-1.0); GFR 25.7; POTASSIUM 4.1 mmol/L (3.5-5.1)
[2021-08-05 16:44] LABS: ALBUMIN 1.8 g/dL (3.4-5.0); ALBUMIN/GLOBULIN RATIO 0.6 (1.0-1.7); MAGNESIUM 1.6 mg/dL (1.8-2.4); TOTAL BILIRUBIN 0.4 mg/dL (0.2-1.0); TOTAL PROTEIN 4.9 g/dL (6.4-8.2)
[2021-08-05] MEDS ORDERED: ONDANSETRON PF 4 MG/2 ML VIAL. IVP PRN (17:15)
[2021-08-05 23:18] VITALS: BP 132/67
[2021-08-06 03:00] VITALS: BP 123/92
[2021-08-06 07:00] VITALS: BP 132/60
[2021-08-06] MEDS ORDERED: LISI10TA16 PO (07:40)
[2021-08-06] MEDS ORDERED: AMLO-186 PO (07:40)
[2021-08-06] MEDS ORDERED: ASCO500C PO (07:40)
[2021-08-06] MEDS ORDERED: IBUP-1007 PO (07:40)
[2021-08-06] MEDS ORDERED: CHOL10004 PO (07:40)
[2021-08-06] MEDS ORDERED: BUPR150T21 PO (07:40)
[2021-08-06 11:00] VITALS: BP 139/55
--- NOTE | 2021-08-06 11:40 | NUR ---
SS following for discharge planning. SS reviewed pt chart and discussed with pt RN. Pt is LTC resident from [facility], ; fax [phone]. Pt is currently requiring oxygen at two liters nasal canula. SS will continue to follow for discharge planning.
[2021-08-06] MEDS: cefTRIAXone IV Push 1 GM VIAL. IVP SCH (13:47)
[2021-08-06] MEDS: IV DEXTROSE 5 %-0.45 % NACL 1,000 ML IV SCH ×2 (13:47→22:58)
[2021-08-06 14:00] LABS: CALCIUM 8.7 mg/dL (8.5-10.1); CREATININE 2.3 mg/dL (0.6-1.0); GFR 20.6; POTASSIUM 4.5 mmol/L (3.5-5.1)
[2021-08-06 15:00] VITALS: BP 134/66
--- NOTE | 2021-08-06 15:09 | PN ---
DATE: 08/06/2021 SUBJECTIVE: The patient continued to be very lethargic, but arousable. She does open her eyes and mouth some words, but denied any complaint of pain. She is afebrile. PHYSICAL EXAMINATION: GENERAL: When I examined her; however, there was no pallor, jaundice, cyanosis or thyromegaly. No jugular venous distention. No limb edema. VITAL SIGNS: Her heart rate was 82, blood pressure was 168/80, temperature was 98.2, respiratory rate 22, and oxygen saturation was 97% on 2 liters of oxygen. HEAD, EYES, EARS, NOSE, AND THROAT: Normocephalic and atraumatic. The patient has somewhat neck rigidity with inability to flex or extend, although she is able to somewhat turn her head to the left than the right. HEART: Showed normal first and second heart sounds, no gallop or murmur. CHEST: Clear to auscultation, no crepitation or rhonchi. ABDOMEN: Distended, soft, nontender. NEUROLOGIC: She is awake, opens eyes and sometimes mouth some words, but drifts back to sleep. All her cranial nerves seem to be grossly intact. She is able to move her upper extremities to much good extent than lower extremities. She is mostly bedbound. Her intake and output incompletely recorded. LABORATORY DATA: Today's labs are still pending at the time of this dictation. ASSESSMENT AND PLAN: 1. Altered mental status. 2. Dehydration and acute kidney injury for which she is on IV fluid. 3. Questionable urinary tract infection. I will start her on IV Rocephin. 4. The patient has marked neck stiffness. Whether this is because of severe cervical spondylosis or meningismus, I am not really sure. I have consulted Dr. Farfan to assist with evaluation and management. I will start her empirically on Rocephin IV and await the result of the culture and sensitivity. MARINA/LENNY BARAJAS: Surekha TID: [id number]
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
--- NOTE | 2021-08-06 16:07 | HP ---
DATE OF SERVICE: 08/06/2021 ADMIT DATE: 08/05/2021 HISTORY OF PRESENT ILLNESS: The patient is a 75-year-old female patient, a resident at [facility] in [place] who was transferred yesterday to [facility] with altered mental status. The patient is extremely confused, delusional, hallucinating. This is a dramatic change from her previous mental status, although I personally have not seen her for a while. She used to be my patient and then she switched to Dr. Cummings and I probably have not seen her for at least 9-12 months. However, according to the nursing staff, the patient's mental status has deteriorated dramatically recently. She was in fact admitted recently here for the altered mental status, thought to be due to urinary tract infection, although at that time her urine culture was negative and the patient was investigated more for her elevated troponin that was felt to be secondary to demand ischemia. 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 Repeated falls, muscle wasting and atrophy, abnormalities of gait and mobility. The patient is total care, requiring assistance for all activities of her daily living. The patient has also age-related osteoporosis, chronic diastolic congestive heart failure, lymphedema, personal history of COVID-19. 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 She has also surgery on her right knee joint. ALLERGIES: SHE IS ALLERGIC TO ACETAMINOPHEN, ADHESIVE, LATEX, METHADONE, NICKEL AND OXYCODONE. MEDICATIONS: She is normally on the following medications: She is on: 1. Amlodipine 5 mg once a day. 2. Wellbutrin extended release 150 mg twice a day, she takes 300 mg 1 time a day for depression. 3. Carvedilol 12.5 mg twice a day. 4. Diphenhydramine 25 mg every 8 hours. 5. Ferrous sulfate 325 mg 1 tablet once a day. 6. She is on gabapentin 100 mg at bedtime. 7. Ibuprofen 600 mg by mouth every 8 hours. 8. Lidoderm patch, 1 patch topically on for 12 hours, off for 12 hours. 9. Lisinopril 10 mg once a day. 10. Methocarbamol 500 mg by mouth every 8 hours. 11. Morphine sulfate extended release 60 mg every 8 hours. 12. Multivitamin with mineral 1 tablet once a day. 13. Nitroglycerin 0.4 mg sublingually every 5 minutes as needed x 3. 14. Nystatin powder applied to reddened skin folds topically every 8 hours. 15. Omeprazole capsule 20 mg once a day. 16. Ondansetron 4 mg by mouth every 6 hours. 17. Oxycodone 20 mg by mouth every 4 hours. 18. Polyethylene glycol 17 grams by mouth once a day. 19. She is also on potassium chloride extended release 20 mEq twice a day. 20. Senna 1 tablet twice a day. 21. Sertraline 100 mg by mouth once a day. 22. Vitamin C for ascorbic acid 500 mg once a day. 23. Vitamin D for cholecalciferol 5000 international unit once a day. SOCIAL HISTORY: She is a resident at [facility]. She has 2 sons. She does not smoke, drink alcohol or recreational drugs. REVIEW OF SYSTEMS: Unobtainable. The patient is extremely confused and lethargic. PHYSICAL EXAMINATION: GENERAL: On arrival to the Emergency Room, there was no pallor, jaundice, cyanosis, no lymphadenopathy, no thyromegaly, no jugular venous distention, but bilateral lower extremity lymphedema. VITAL SIGNS: Her heart rate on arrival was 90, blood pressure is 132/73, temperature was 98.2, respiratory rate 24, and oxygen saturation was 99%. HEAD, EYES, EARS, NOSE, AND THROAT: Normocephalic, atraumatic. NECK: Supple. HEART: Normal first and second heart sounds, no gallop, rub or murmur. CHEST: Shows central trachea, equal bilateral chest expansion, air entry, . I could not appreciate any crepitation or rhonchi. ABDOMEN: Distended, soft, nontender, no guarding or rigidity. No organomegaly. All hernial orifice intact. Bowel sounds normal. NEUROLOGIC: She was very lethargic, but opens eyes, tracks and follows command at time. All her cranial nerves seem to be intact. She moves her upper extremities to much good extent than lower extremities. LABORATORY DATA: While in the Emergency Room, she has had lab work done, which showed a white cell count of 14,700, hemoglobin 14.6, hematocrit 44, MCV 96 and platelet count of 223,000 with a manual differential showed 94% polymorphs, 3% lymphocytes and 3% monocytes. Her chemistry on arrival showed a serum sodium 141, potassium 4.1, chloride 110, bicarbonate 21, anion gap of 10, BUN 59, creatinine 1.9. Estimated GFR was 25 mL per minute. Her glucose was 116, her calcium was 7.4, magnesium was 1.6. Total bilirubin, AST, ALT, alkaline phosphatase were normal. Her troponin was less than 0.017 and her total protein was 4.9, albumin was 1.8, serum lipase was 32, beta natriuretic peptide was 5472. Her TSH was 0.441. She has had a CT scan of the head. The CT scan of the head showed there is no evidence of hemorrhage, mass or extraaxial fluid collection, gusman-white differentiation is maintained with no evidence of edema, subcortical periventricular as well as deep white matter hypoattenuation, likely changes of chronic small vessel disease. There is no mass effect or shift of the intracranial structures. The ventricles and cerebral sulci are prominent for the patient's stated age, consistent with generalized cerebral volume loss. The cerebellum and brainstem are unremarkable. The calvarium demonstrates no evidence of fracture or focal lesion. There is normal aeration of the visualized paranasal sinuses and mastoid air cells. The visualized portion of the orbits are normal and the impression is that the patient has no evidence of acute intracranial process, white matter changes, likely chronic small vessel disease. The ventricles and cerebral sulci are prominent for the patient's stated age, consistent with generalized cerebral volume loss. ASSESSMENT AND PLAN: In summary, this is a 75-year-old female patient, a resident at [facility], who was admitted with altered mental status with worsening confusion and delusion and hallucination. She was found to be markedly dehydrated, did receive IV fluid. Her BUN and creatinine were 59 and 1.9. She has mild leukocytosis. Her urine was cloudy with a pH of 5.5, specific gravity of 1.020. There is a trace of ketones, trace of blood, negative for nitrite. There was moderate amount of leukocyte esterase, occasional rbc's, 20-40 wbc's and few bacteria. Urine and blood were sent for culture and sensitivity. The result of which is still pending at the time of this dictation. We will continue with IV fluid, repeat her labs again tomorrow and consult Dr. Farfan to evaluate and assist with her management. KAILA/YASMANI DR: MARINA/delfin TID: [id number]
[2021-08-06] MEDS: fentaNYL PF VIAL 100 MCG/2 ML VIAL IVP PRN (17:54)
[2021-08-06 19:48] VITALS: BP 133/69
[2021-08-06 23:13] VITALS: BP 130/72
[2021-08-07 03:21] VITALS: BP 143/66
[2021-08-07 04:35] LABS: HEMATOCRIT 38.2 % (36.0-47.0); HEMOGLOBIN 12.2 g/dL (12.0-15.5); RED BLOOD COUNT 3.92 x10^6/uL (3.50-5.40); RED CELL DISTRIBUTION WIDTH 13.3 % (11.5-14.5)
[2021-08-07 04:53] LABS: ALBUMIN 1.8 g/dL (3.4-5.0); ALBUMIN/GLOBULIN RATIO 0.5 (1.0-1.7); CALCIUM 8.5 mg/dL (8.5-10.1); CREATININE 2.4 mg/dL (0.6-1.0); GFR 19.6; TOTAL BILIRUBIN 0.4 mg/dL (0.2-1.0); TOTAL PROTEIN 5.7 g/dL (6.4-8.2)
[2021-08-07 07:00] VITALS: BP 143/72
[2021-08-07] MEDS: IV DEXTROSE 5 %-0.45 % NACL 1,000 ML IV SCH ×2 (08:17→21:16)
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
--- NOTE | 2021-08-07 12:33 | PN ---
DATE: 08/07/2021 SUBJECTIVE: The patient is resting slightly propped up in bed, in no apparent distress. She is somewhat more awake today, has had an EEG scheduled this morning. She was seen also by the Infectious Disease as well as portable grinding machine operator as her kidney function has worsened. Her creatinine has risen up to 2.4. Her serum creatinine was only 1.1 on 07/26/2021. She did have an indwelling Ochoa catheter and she is now on IV fluid. On questioning her this afternoon, she denied any complaint, in particular, denied any chest pain or shortness of breath. PHYSICAL EXAMINATION: GENERAL: When I examined her, she looked pale, but not jaundiced or cyanosed, no lymphadenopathy, no thyromegaly, no jugular venous distention. No limb edema. VITAL SIGNS: Her heart rate was 90, blood pressure was 143/72, temperature was 97.1, respiratory rate was 18 and oxygen saturation was 94% on 2 liters of oxygen. HEAD, EYES, EARS, NOSE, AND THROAT: Normocephalic and atraumatic. NECK: Supple. HEART: Showed normal first and second heart sounds, no gallop, rub or murmur. CHEST: Shows central trachea, equal bilateral chest expansion, air entry, vesicular breath sounds. No crepitation or rhonchi. ABDOMEN: Slightly distended, soft, nontender. NEUROLOGIC: She is awake, alert, answers some questions appropriately. All her cranial nerves are intact. She moves her upper extremities to much good extent than lower extremities. She is mostly bedbound. Her intake over the last 24 hours was 1976. No output was recorded. LABORATORY DATA: Her lab work this morning showed a serum sodium 139, her potassium of 4, chloride 106, bicarbonate 20, anion gap of 13, BUN 74, creatinine was 2.4. Estimated GFR was 19.6 mL per minute. Her glucose 161, calcium was 8.5, magnesium was 1.9. Total bilirubin, AST, ALT, alkaline phosphatase were normal. Her C-reactive protein was 376. Total protein 5.7, albumin was 1.8. Her serum vitamin B12 was 113 picograms per mL and her TSH was normal at 0.441. Her white cell count is down to 11,000, hemoglobin 12, hematocrit 38, MCV 97, platelet count of 199,000. Her sedimentation rate was 17 mm per hour. ASSESSMENT: Altered mental status that is according to Dr. Farfan likely due to worsening dementia, acute kidney injury, probably because of dehydration and poor intake. Her creatinine is steadily rising. She is on IV fluid now and she has an indwelling Ochoa catheter, although she has pyuria. Again, her urine culture shows only 10,000 colony forming units per mL of normal genitourinary veronica, not indicative of infection. PLAN: To continue with IV fluid. I am not sure that there is any need for IV antibiotic. Await the results of the EEG and discussion with her son. MARINA/LENNY DR: Surekha TID: [id number]
--- NOTE | 2021-08-07 13:19 | EEG ---
DATE OF SERVICE: 08/07/2021 ELECTROENCEPHALOGRAM REPORT EEG NUMBER: [id number] performed on 08/07/2021. OBJECTIVE: The patient is a 75-year-old female with dementia who has worsened significantly in the last 2 weeks. DESCRIPTION: This is a digital study. Electrodes were placed according to the international 10-20 system. Bipolar and referential montages are available. Activation procedures typically include hyperventilation and intermittent photic stimulation. INTERPRETATION: The waking background consists of 5-6 Hz, 20-50 microvolt activity, symmetrically distributed over parietooccipital regions and reactive to eye opening. Hyperventilation is not performed. Intermittent photic stimulation is noncontributory. IMPRESSION: This electroencephalogram with the patient awake and drowsy is abnormal because of a moderate, diffuse disturbance of cerebral activity as may be seen in any of a variety of toxic or metabolic encephalopathies. There is no evidence of any focal, paroxysmal, or epileptiform activity. Specifically, there is no evidence of Creutzfeldt-Jabari disease. Thank you for letting us help with the patient's care. YOSVANY DR: Dilip TID: [id number] CC: CHLOÉ NAPOLES MD
[2021-08-07] MEDS: cefTRIAXone IV Push 1 GM VIAL. IVP SCH (14:23)
--- NOTE | 2021-08-07 14:30 | PDOC ---
PROGRESS NOTES Date of Service DATE: 08/07/21 TIME: 14:19 Assessment Problems Medical Problems: (1) Acute renal insufficiency Status: Acute (2) Dehydration Status: Acute (3) Pyuria Status: Acute Dementia, EEG negative for epileptic activity such as from [place], but there is slowing of background. Note elevated ESR, creatinine, and BNP, could have infection and mild renal insufficiency. 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 Plan I do not see a need for a lumbar puncture or temporal artery biopsy Treat medical diseases Fully discussed with patient's son. I stressed that I think she has progressing dementia which will continue to worsen, we will try to treat any type of reversible medical problem we encounter. Subjective Denies pain Objective Vital Signs Date Time Temp Pulse Resp B/P (MAP) Pulse Ox O2 Delivery O2 Flow Rate FiO2 08/07/21 08:00 Nasal Cannula 2.0 08/07/21 07:00 97.1 90 18 143/72 (95) 94 97.1 Intake and Output 08/07/21 07:00 Intake Total 1000 ml Output Total 125 ml Balance 875 ml Intake Oral 0 ml IV Total 1000 ml Output Urine Total 125 ml PHYSICAL EXAM Alert. Does not know name of hospital or date, follows some commands. PERRL. EOMI. CN: no focal findings. Muscle tone: normal. 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 Sensory exam: no abnormal findings. No cerebellar signs elicited. Review of Relevant I have reviewed the following items andrey (where applicable) has been applied. Labs Laboratory Tests Test 08/05/21 14:40 08/05/21 15:42 08/05/21 15:50 08/05/21 16:00 White Blood Count 14.7 x10^3/uL (4.0-11.0) Red Blood Count 4.64 x10^6/uL (3.50-5.40) Hemoglobin 14.6 g/dL (12.0-15.5) Hematocrit 44.4 % (36.0-47.0) Mean Corpuscular Volume 96 fL (79-100) Mean Corpuscular Hemoglobin 31 pg (25-35) Mean Corpuscular Hemoglobin Concent 33 g/dL (31-37) Red Cell Distribution Width 12.9 % (11.5-14.5) Platelet Count 223 x10^3/uL (140-400) Neutrophils (%) (Auto) 94 % (31-73) Lymphocytes (%) (Auto) 3 % (24-48) Monocytes (%) (Auto) 3 % (0-9) Eosinophils (%) (Auto) 0 % (0-3) Basophils (%) (Auto) 0 % (0-3) Neutrophils # (Auto) 13.8 x10^3/uL (1.8-7.7) Lymphocytes # (Auto) 0.4 x10^3/uL (1.0-4.8) Monocytes # (Auto) 0.4 x10^3/uL (0.0-1.1) Eosinophils # (Auto) 0.0 x10^3/uL (0.0-0.7) Basophils # (Auto) 0.0 x10^3/uL (0.0-0.2) Segmented Neutrophils % 84 % (35-66) Band Neutrophils % 12 % (0-9) Lymphocytes % 2 % (24-48) Monocytes % 2 % (0-10) Platelet Estimate Adequate (ADEQUATE) Urine Collection Type U cath Urine Color Khadijah Urine Clarity Cloudy Urine pH 5.5 (<5.0-8.0) Urine Specific [place] 1.020 (1.000-1.030) Urine Protein 30 mg/dL (NEG-TRACE) Urine Glucose (UA) Negative mg/dL (NEG) Urine Ketones (Stick) Trace mg/dL (NEG) Urine Blood Trace (NEG) Urine Nitrite Negative (NEG) Urine Bilirubin Small (NEG) Urine Urobilinogen Dipstick 0.2 mg/dL (0.2 mg/dL) Urine Leukocyte Esterase Moderate (NEG) Urine RBC Occ /HPF (0-2) Urine WBC 20-40 /HPF (0-4) Urine Squamous Epithelial Cells Mod /LPF Urine Bacteria Few /HPF (0-FEW) Urine Yeast Present /HPF SARS-CoV-2 RNA (AMY) Negative (Negative) SARS-CoV-2 Antigen (Rapid) Negative (NEGATIVE) Sodium Level 141 mmol/L (136-145) Potassium Level 4.1 mmol/L (3.5-5.1) Chloride Level 110 mmol/L (98-107) Carbon Dioxide Level 21 mmol/L (21-32) Anion Gap 10 (6-14) Blood Urea Nitrogen 59 mg/dL (7-20) Creatinine 1.9 mg/dL (0.6-1.0) Estimated GFR (Cockcroft-Gault) 25.7 BUN/Creatinine Ratio 31 (6-20) Glucose Level 116 mg/dL (70-99) Calcium Level 7.4 mg/dL (8.5-10.1) Magnesium Level 1.6 mg/dL (1.8-2.4) Total Bilirubin 0.4 mg/dL (0.2-1.0) Aspartate Amino Transf (AST/SGOT) 16 U/L (15-37) Alanine Aminotransferase (ALT/SGPT) 12 U/L (14-59) Alkaline Phosphatase 83 U/L (46-116) Ammonia 12 mcmol/L (11-34) Creatine Kinase 11 U/L (26-192) Troponin I Quantitative < 0.017 ng/mL (0.000-0.055) TF-Zbn-[id number]-Type Natriuretic Peptide 5472 pg/mL (0-449) Total Protein 4.9 g/dL (6.4-8.2) Albumin 1.8 g/dL (3.4-5.0) Albumin/Globulin Ratio 0.6 (1.0-1.7) Lipase 32 U/L (73-393) Thyroid Stimulating Hormone (TSH) 0.441 uIU/mL (0.358-3.74) Test 08/05/21 18:38 08/05/21 20:05 08/05/21 23:05 08/06/21 13:45 Glucose (Fingerstick) 119 mg/dL (70-99) Troponin I Quantitative < 0.017 ng/mL (0.000-0.055) < 0.017 ng/mL (0.000-0.055) Sodium Level 140 mmol/L (136-145) Potassium Level 4.5 mmol/L (3.5-5.1) Chloride Level 107 mmol/L (98-107) Carbon Dioxide Level 18 mmol/L (21-32) Anion Gap 15 (6-14) Blood Urea Nitrogen 74 mg/dL (7-20) Creatinine 2.3 mg/dL (0.6-1.0) Estimated GFR (Cockcroft-Gault) 20.6 Glucose Level 113 mg/dL (70-99) Calcium Level 8.7 mg/dL (8.5-10.1) Test 08/07/21 03:10 White Blood Count 11.0 x10^3/uL (4.0-11.0) Red Blood Count 3.92 x10^6/uL (3.50-5.40) Hemoglobin 12.2 g/dL (12.0-15.5) Hematocrit 38.2 % (36.0-47.0) Mean Corpuscular Volume 97 fL (79-100) Mean Corpuscular Hemoglobin 31 pg (25-35) Mean Corpuscular Hemoglobin Concent 32 g/dL (31-37) Red Cell Distribution Width 13.3 % (11.5-14.5) Platelet Count 199 x10^3/uL (140-400) Erythrocyte Sedimentation Rate 70 (0-25) Sodium Level 139 mmol/L (136-145) Potassium Level 4.0 mmol/L (3.5-5.1) Chloride Level 106 mmol/L (98-107) Carbon Dioxide Level 20 mmol/L (21-32) Anion Gap 13 (6-14) Blood Urea Nitrogen 74 mg/dL (7-20) Creatinine 2.4 mg/dL (0.6-1.0) Estimated GFR (Cockcroft-Gault) 19.6 BUN/Creatinine Ratio 31 (6-20) Glucose Level 161 mg/dL (70-99) Calcium Level 8.5 mg/dL (8.5-10.1) Magnesium Level 1.9 mg/dL (1.8-2.4) Total Bilirubin 0.4 mg/dL (0.2-1.0) Aspartate Amino Transf (AST/SGOT) 13 U/L (15-37) Alanine Aminotransferase (ALT/SGPT) 15 U/L (14-59) Alkaline Phosphatase 107 U/L (46-116) C-Reactive Protein, Quantitative 376.0 mg/L (0-3.3) Total Protein 5.7 g/dL (6.4-8.2) Albumin 1.8 g/dL (3.4-5.0) Albumin/Globulin Ratio 0.5 (1.0-1.7) Vitamin B12 Level 1013 pg/mL (247-911) Laboratory Tests Test 08/07/21 03:10 White Blood Count 11.0 x10^3/uL (4.0-11.0) Red Blood Count 3.92 x10^6/uL (3.50-5.40) Hemoglobin 12.2 g/dL (12.0-15.5) Hematocrit 38.2 % (36.0-47.0) Mean Corpuscular Volume 97 fL (79-100) Mean Corpuscular Hemoglobin 31 pg (25-35) Mean Corpuscular Hemoglobin Concent 32 g/dL (31-37) Red Cell Distribution Width 13.3 % (11.5-14.5) Platelet Count 199 x10^3/uL (140-400) Erythrocyte Sedimentation Rate 70 (0-25) Sodium Level 139 mmol/L (136-145) Potassium Level 4.0 mmol/L (3.5-5.1) Chloride Level 106 mmol/L (98-107) Carbon Dioxide Level 20 mmol/L (21-32) Anion Gap 13 (6-14) Blood Urea Nitrogen 74 mg/dL (7-20) Creatinine 2.4 mg/dL (0.6-1.0) Estimated GFR (Cockcroft-Gault) 19.6 BUN/Creatinine Ratio 31 (6-20) Glucose Level 161 mg/dL (70-99) Calcium Level 8.5 mg/dL (8.5-10.1) Magnesium Level 1.9 mg/dL (1.8-2.4) Total Bilirubin 0.4 mg/dL (0.2-1.0) Aspartate Amino Transf (AST/SGOT) 13 U/L (15-37) Alanine Aminotransferase (ALT/SGPT) 15 U/L (14-59) Alkaline Phosphatase 107 U/L (46-116) C-Reactive Protein, Quantitative 376.0 mg/L (0-3.3) Total Protein 5.7 g/dL (6.4-8.2) Albumin 1.8 g/dL (3.4-5.0) Albumin/Globulin Ratio 0.5 (1.0-1.7) Vitamin B12 Level 1013 pg/mL (247-911) Microbiology 08/05/21 Urine Culture - Final, Complete 08/05/21 Blood Culture - Preliminary, Resulted NO GROWTH AFTER 1 DAY Medications Current Medications Sodium Chloride 1,000 ml @ 1,000 mls/hr 1X ONCE IV Last administered on 08/05/21at 15:29; Start 08/05/21 at 14:30; Stop 08/05/21 at 15:29; Status DC Ondansetron HCl (Zofran) 4 mg PRN Q8HRS PRN IVP NAUSEA/VOMITING; Start 08/05/21 at 17:15; Stop 08/06/21 at 17:14; Status DC Sodium Chloride 1,000 ml @ 100 mls/hr 1X ONCE IV Last administered on 08/05/21at 17:59; Start 08/05/21 at 17:15; Stop 08/06/21 at 03:14; Status DC Dextrose/Sodium Chloride 1,000 ml @ 100 mls/hr Q10H IV Last administered on 08/07/21at 08:17; Start 08/06/21 at 13:15 Ceftriaxone Sodium (Rocephin) 1 gm Q24H IVP Last administered on 08/06/21at 13:47; Start 08/06/21 at 14:00 Fentanyl Citrate (Fentanyl 2ml Vial) 50 mcg PRN Q4HRS PRN IVP PAIN Last administered on 08/06/21at 17:54; Start 08/06/21 at 17:30 Lactobacillus Rhamnosus (Culturelle) 1 cap BID PO ; Start 08/07/21 at 21:00 Active Scripts Active Cefdinir 300 Mg Capsule 1 Cap PO BID 10 Days Reported Vitamin D3 (Vitamin D) 25 Mcg Tablet 25 Mcg PO DAILY 1,000 UNITS = 25 MCG Vitamin C (Ascorbic Acid) 500 Mg Capsule.er 1 Cap PO DAILY 30 Days Lisinopril 10 Mg Tablet 1 Tab PO DAILY Ibuprofen 600 Mg Tablet 600 Mg PO Q8HRS PRN Bupropion Xl (Bupropion Hcl) 150 Mg Tab.er.24h 1 Tab PO DAILYWBKFT Amlodipine Besylate 5 Mg Tablet 5 Mg PO DAILY Senna Laxative (Sennosides) 8.6 Mg Tablet 1 Tab PO BID 30 Days Miralax (Polyethylene Glycol 3350) 17 Gm Powd.pack 1 Packet PO DAILY 2 Days dissolve in water Oxycodone Hcl 20 Mg Tablet 20 Mg PO PRN Q4HRS PRN Ondansetron Hcl 4 Mg Tablet 1 Tab PO PRN Q6HRS Omeprazole 20 Mg Capsule.dr 1 Cap PO DAILY Nystatin 15 Gm Powder 1 Hemant TP PRN Q8HRS PRN 7 Days apply to affected area(s) Methocarbamol 500 Mg Tablet 500 Mg PO PRN Q8HRS PRN Sertraline Hcl 100 Mg Tablet 100 Mg PO DAILY Potassium Chloride (Potassium Chloride) 20 Meq Tablet.er 1 Tab PO BID 30 Days NITROGLYCERIN SubLingual (Nitroglycerin) 0.4 Mg Tab.subl 0.4 Mg SL PRN Q5MIN PRN Multiple Vitamins (Multivitamin) 1 Each Tablet 1 Tab PO DAILY 30 Days Morphine Sulfate Er (Morphine Sulfate) 60 Mg Tablet.er 1 Tab PO Q8HRS Gabapentin (Gabapentin) 100 Mg Capsule 100 Mg PO HS Ferrous Sulfate 325 Mg Tablet 1 Tab PO DAILY Carvedilol (Carvedilol) 12.5 Mg Tablet 12.5 Mg PO BIDWMEALS Benadryl (Diphenhydramine Hcl) 25 Mg Capsule 25 Mg PO Q8HRS PRN Lidocaine 700 Mg Adh..patch 700 Mg TP Q12HR Vitals/I & O Vital Sign - Last 24 Hours 08/06/21 08/06/21 08/06/21 08/06/21 15:00 19:48 20:00 23:13 Temp 98.4 98.3 98.3 98.4 98.3 98.3 Pulse 87 89 90 Resp 18 20 20 B/P (MAP) 134/66 (88) 133/69 (90) 130/72 (91) Pulse Ox 96 98 96 O2 Delivery Nasal Cannula Nasal Cannula Nasal Cannula Nasal Cannula O2 Flow Rate 2.0 2.0 2.0 2.0 08/07/21 08/07/21 08/07/21 03:21 07:00 08:00 Temp 98.4 97.1 98.4 97.1 Pulse 91 90 Resp 20 18 B/P (MAP) 143/66 (91) 143/72 (95) Pulse Ox 97 94 O2 Delivery Nasal Cannula Nasal Cannula Nasal Cannula O2 Flow Rate 2.0 2.0 2.0 Intake and Output 08/06/21 08/06/21 08/07/21 15:00 23:00 07:00 Intake Total 1000 ml 0 ml Output Total 125 ml Balance 1000 ml -125 ml Justicifation of Admission Dx: Justifications for Admission: Justification of Admission Dx: N/A LUANA EFRNANDES MD Aug 07, 2021 14:30
[2021-08-07 15:00] VITALS: BP 131/68
[2021-08-07 19:00] VITALS: BP 178/72
--- NOTE | 2021-08-07 19:14 | NUR ---
Nurse's note: The patient refused her meals and assessment by [facility] not restarted yet. Dr. Vaughn asked for swallow evaluation prior to restarting PO meds.
[2021-08-07] MEDS: LACTOBACILLUS RHAMNOSUS GG 1 CAPSULE. PO SCH (21:00)
[2021-08-07] MEDS: fentaNYL PF VIAL 100 MCG/2 ML VIAL IVP PRN (21:21)
[2021-08-07 23:00] VITALS: BP 153/80
--- NOTE | 2021-08-07 23:15 | RAD ---
EXAM: Complete renal ultrasound CLINICAL HISTORY: Acute kidney insufficiency. COMPARISON: No priors Findings: Mild distention urinary bladder the upper bladder obscured by bowel gas shadowing, no bladd er wall thickening, mass or calculus documented. Aorta and IVC not visualized due to bowel gas shadowing. Left renal length 9.8 cm. Mild cortical atrophy. Normal echogenicity. No mass, calculus, or hydroneph rosis of the left kidney evident. Right renal length 9.7 cm. Mild cortical atrophy. Normal echogenicity. No mass, calculus, or hydronep hrosis of the right kidney evident. IMPRESSION: Chronic medical renal disease with mild renal cortical atrophy. No hydronephrosis. Electronically signed by: Chago Bundy MD (08/07/2021 11:13 PM) [facility]
[2021-08-08 03:10] VITALS: BP 146/81
[2021-08-08 07:00] VITALS: BP 161/77
[2021-08-08 07:04] LABS: HEMATOCRIT 37.8 % (36.0-47.0); HEMOGLOBIN 12.1 g/dL (12.0-15.5); RED BLOOD COUNT 3.87 x10^6/uL (3.50-5.40); RED CELL DISTRIBUTION WIDTH 13.4 % (11.5-14.5); WHITE BLOOD COUNT 12.7 x10^3/uL (4.0-11.0)
[2021-08-08 07:36] LABS: ALBUMIN 1.5 g/dL (3.4-5.0); ALBUMIN/GLOBULIN RATIO 0.4 (1.0-1.7); CALCIUM 8.7 mg/dL (8.5-10.1); CREATININE 1.6 mg/dL (0.6-1.0); GFR 31.3; POTASSIUM 3.3 mmol/L (3.5-5.1); TOTAL BILIRUBIN 0.3 mg/dL (0.2-1.0); TOTAL PROTEIN 5.3 g/dL (6.4-8.2)
[2021-08-08] MEDS: IV DEXTROSE 5 %-0.45 % NACL 1,000 ML IV SCH (08:13)
[2021-08-08] MEDS: LACTOBACILLUS RHAMNOSUS GG 1 CAPSULE. PO SCH ×2 (08:13→20:25)
--- NOTE | 2021-08-08 09:07 | PDOC ---
PROGRESS NOTES Date of Service DATE: 08/08/21 TIME: 09:06 Assessment Problems Medical Problems: (1) Acute renal insufficiency Status: Acute (2) Dehydration Status: Acute (3) Pyuria Status: Acute Dementia, EEG negative for epileptic activity such as from [place], but there is slowing of background. Note elevated ESR, creatinine, and BNP, could have infection and mild renal insufficiency. 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 Plan I do not see a need for a lumbar puncture or temporal artery biopsy Treat medical diseases Fully discussed with patient's son yesterday. I stressed that I think she has progressing dementia which will continue to worsen, we will try to treat any type of reversible medical problem we encounter. Okay to return to [facility] Subjective Denies pain Objective Vital Signs Date Time Temp Pulse Resp B/P (MAP) Pulse Ox O2 Delivery O2 Flow Rate FiO2 08/08/21 07:00 98.4 94 20 161/77 (105) 99 Nasal Cannula 98.4 08/07/21 21:51 2.0 Intake and Output 08/08/21 07:00 Output Total 500 ml Balance -500 ml Output Urine Total 500 ml PHYSICAL EXAM Alert. Does not know name of hospital or date, follows some commands. PERRL. EOMI. CN: no focal findings. Muscle tone: normal. 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 Sensory exam: no abnormal findings. No cerebellar signs elicited. Review of Relevant I have reviewed the following items andrey (where applicable) has been applied. Labs Laboratory Tests Test 08/06/21 13:45 08/07/21 03:10 08/08/21 06:10 Sodium Level 140 mmol/L (136-145) 139 mmol/L (136-145) 137 mmol/L (136-145) Potassium Level 4.5 mmol/L (3.5-5.1) 4.0 mmol/L (3.5-5.1) 3.3 mmol/L (3.5-5.1) Chloride Level 107 mmol/L (98-107) 106 mmol/L (98-107) 106 mmol/L (98-107) Carbon Dioxide Level 18 mmol/L (21-32) 20 mmol/L (21-32) 15 mmol/L (21-32) Anion Gap 15 (6-14) 13 (6-14) 16 (6-14) Blood Urea Nitrogen 74 mg/dL (7-20) 74 mg/dL (7-20) 29 mg/dL (7-20) Creatinine 2.3 mg/dL (0.6-1.0) 2.4 mg/dL (0.6-1.0) 1.6 mg/dL (0.6-1.0) Estimated GFR (Cockcroft-Gault) 20.6 19.6 31.3 Glucose Level 113 mg/dL (70-99) 161 mg/dL (70-99) 156 mg/dL (70-99) Calcium Level 8.7 mg/dL (8.5-10.1) 8.5 mg/dL (8.5-10.1) 8.7 mg/dL (8.5-10.1) White Blood Count 11.0 x10^3/uL (4.0-11.0) 12.7 x10^3/uL (4.0-11.0) Red Blood Count 3.92 x10^6/uL (3.50-5.40) 3.87 x10^6/uL (3.50-5.40) Hemoglobin 12.2 g/dL (12.0-15.5) 12.1 g/dL (12.0-15.5) Hematocrit 38.2 % (36.0-47.0) 37.8 % (36.0-47.0) Mean Corpuscular Volume 97 fL (79-100) 98 fL (79-100) Mean Corpuscular Hemoglobin 31 pg (25-35) 31 pg (25-35) Mean Corpuscular Hemoglobin Concent 32 g/dL (31-37) 32 g/dL (31-37) Red Cell Distribution Width 13.3 % (11.5-14.5) 13.4 % (11.5-14.5) Platelet Count 199 x10^3/uL (140-400) 227 x10^3/uL (140-400) Erythrocyte Sedimentation Rate 70 (0-25) BUN/Creatinine Ratio 31 (6-20) 18 (6-20) Magnesium Level 1.9 mg/dL (1.8-2.4) Total Bilirubin 0.4 mg/dL (0.2-1.0) 0.3 mg/dL (0.2-1.0) Aspartate Amino Transf (AST/SGOT) 13 U/L (15-37) 10 U/L (15-37) Alanine Aminotransferase (ALT/SGPT) 15 U/L (14-59) 17 U/L (14-59) Alkaline Phosphatase 107 U/L (46-116) 118 U/L (46-116) C-Reactive Protein, Quantitative 376.0 mg/L (0-3.3) Total Protein 5.7 g/dL (6.4-8.2) 5.3 g/dL (6.4-8.2) Albumin 1.8 g/dL (3.4-5.0) 1.5 g/dL (3.4-5.0) Albumin/Globulin Ratio 0.5 (1.0-1.7) 0.4 (1.0-1.7) Vitamin B12 Level 1013 pg/mL (247-911) Laboratory Tests Test 08/08/21 06:10 White Blood Count 12.7 x10^3/uL (4.0-11.0) Red Blood Count 3.87 x10^6/uL (3.50-5.40) Hemoglobin 12.1 g/dL (12.0-15.5) Hematocrit 37.8 % (36.0-47.0) Mean Corpuscular Volume 98 fL (79-100) Mean Corpuscular Hemoglobin 31 pg (25-35) Mean Corpuscular Hemoglobin Concent 32 g/dL (31-37) Red Cell Distribution Width 13.4 % (11.5-14.5) Platelet Count 227 x10^3/uL (140-400) Sodium Level 137 mmol/L (136-145) Potassium Level 3.3 mmol/L (3.5-5.1) Chloride Level 106 mmol/L (98-107) Carbon Dioxide Level 15 mmol/L (21-32) Anion Gap 16 (6-14) Blood Urea Nitrogen 29 mg/dL (7-20) Creatinine 1.6 mg/dL (0.6-1.0) Estimated GFR (Cockcroft-Gault) 31.3 BUN/Creatinine Ratio 18 (6-20) Glucose Level 156 mg/dL (70-99) Calcium Level 8.7 mg/dL (8.5-10.1) Total Bilirubin 0.3 mg/dL (0.2-1.0) Aspartate Amino Transf (AST/SGOT) 10 U/L (15-37) Alanine Aminotransferase (ALT/SGPT) 17 U/L (14-59) Alkaline Phosphatase 118 U/L (46-116) Total Protein 5.3 g/dL (6.4-8.2) Albumin 1.5 g/dL (3.4-5.0) Albumin/Globulin Ratio 0.4 (1.0-1.7) Microbiology 08/05/21 Urine Culture - Final, Complete 08/05/21 Blood Culture - Preliminary, Resulted NO GROWTH AFTER 2 DAYS Medications Current Medications Sodium Chloride 1,000 ml @ 1,000 mls/hr 1X ONCE IV Last administered on 08/05/21at 15:29; Start 08/05/21 at 14:30; Stop 08/05/21 at 15:29; Status DC Ondansetron HCl (Zofran) 4 mg PRN Q8HRS PRN IVP NAUSEA/VOMITING; Start 08/05/21 at 17:15; Stop 08/06/21 at 17:14; Status DC Sodium Chloride 1,000 ml @ 100 mls/hr 1X ONCE IV Last administered on 08/05/21at 17:59; Start 08/05/21 at 17:15; Stop 08/06/21 at 03:14; Status DC Dextrose/Sodium Chloride 1,000 ml @ 100 mls/hr Q10H IV Last administered on 08/08/21at 08:13; Start 08/06/21 at 13:15 Ceftriaxone Sodium (Rocephin) 1 gm Q24H IVP Last administered on 08/07/21at 14:23; Start 08/06/21 at 14:00 Fentanyl Citrate (Fentanyl 2ml Vial) 50 mcg PRN Q4HRS PRN IVP PAIN Last administered on 08/07/21at 21:21; Start 08/06/21 at 17:30 Lactobacillus Rhamnosus (Culturelle) 1 cap BID PO ; Start 08/07/21 at 21:00 Active Scripts Active Cefdinir 300 Mg Capsule 1 Cap PO BID 10 Days Reported Vitamin D3 (Vitamin D) 25 Mcg Tablet 25 Mcg PO DAILY 1,000 UNITS = 25 MCG Vitamin C (Ascorbic Acid) 500 Mg Capsule.er 1 Cap PO DAILY 30 Days Lisinopril 10 Mg Tablet 1 Tab PO DAILY Ibuprofen 600 Mg Tablet 600 Mg PO Q8HRS PRN Bupropion Xl (Bupropion Hcl) 150 Mg Tab.er.24h 1 Tab PO DAILYWBKFT Amlodipine Besylate 5 Mg Tablet 5 Mg PO DAILY Senna Laxative (Sennosides) 8.6 Mg Tablet 1 Tab PO BID 30 Days Miralax (Polyethylene Glycol 3350) 17 Gm Powd.pack 1 Packet PO DAILY 2 Days dissolve in water Oxycodone Hcl 20 Mg Tablet 20 Mg PO PRN Q4HRS PRN Ondansetron Hcl 4 Mg Tablet 1 Tab PO PRN Q6HRS Omeprazole 20 Mg Capsule.dr 1 Cap PO DAILY Nystatin 15 Gm Powder 1 Hemant TP PRN Q8HRS PRN 7 Days apply to affected area(s) Methocarbamol 500 Mg Tablet 500 Mg PO PRN Q8HRS PRN Sertraline Hcl 100 Mg Tablet 100 Mg PO DAILY Potassium Chloride (Potassium Chloride) 20 Meq Tablet.er 1 Tab PO BID 30 Days NITROGLYCERIN SubLingual (Nitroglycerin) 0.4 Mg Tab.subl 0.4 Mg SL PRN Q5MIN PRN Multiple Vitamins (Multivitamin) 1 Each Tablet 1 Tab PO DAILY 30 Days Morphine Sulfate Er (Morphine Sulfate) 60 Mg Tablet.er 1 Tab PO Q8HRS Gabapentin (Gabapentin) 100 Mg Capsule 100 Mg PO HS Ferrous Sulfate 325 Mg Tablet 1 Tab PO DAILY Carvedilol (Carvedilol) 12.5 Mg Tablet 12.5 Mg PO BIDWMEALS Benadryl (Diphenhydramine Hcl) 25 Mg Capsule 25 Mg PO Q8HRS PRN Lidocaine 700 Mg Adh..patch 700 Mg TP Q12HR Vitals/I & O Vital Sign - Last 24 Hours 08/07/21 08/07/21 08/07/21 08/07/21 15:00 19:00 20:00 21:21 Temp 97.6 98.8 97.6 98.8 Pulse 18 97 Resp 20 B/P (MAP) 131/68 (89) 178/72 (107) Pulse Ox 96 100 O2 Delivery Nasal Cannula Nasal Cannula Nasal Cannula Nasal Cannula O2 Flow Rate 2.0 2.0 08/07/21 08/07/21 08/08/21 08/08/21 21:51 23:00 03:10 07:00 Temp 97.7 97.5 98.4 97.7 97.5 98.4 Pulse 89 96 94 Resp 20 20 20 B/P (MAP) 153/80 (104) 146/81 (102) 161/77 (105) Pulse Ox 100 99 98 99 O2 Delivery Nasal Cannula Nasal Cannula Nasal Cannula Nasal Cannula O2 Flow Rate 2.0 Intake and Output 08/07/21 08/07/21 08/08/21 15:00 23:00 07:00 Output Total 100 ml 50 ml 350 ml Balance -100 ml -50 ml -350 ml Justicifation of Admission Dx: Justifications for Admission: Justification of Admission Dx: N/A LUANA FERNANDES MD Aug 08, 2021 09:07
[2021-08-08 11:00] VITALS: BP 154/74
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
--- NOTE | 2021-08-08 11:43 | RAD ---
CT ABDOMEN+PELVIS WO dated 08/08/2021 10:02 AM Indication:Reason: ??? OBSTRUCTED VENTRAL HERNIA / Spl. Instructions: / History: Comparison: No comparison is available. Technique: Helical noncontrast images were performed. One or more of the following individualized dose reduction techniques were utilized for this examinat ion: 1. Automated exposure control 2. Adjustment of the mA and/or kV according to patient size 3. Use of iterative reconstruction technique Findings: There is some focal consolidation in the left lower lobe and mild atelectasis at both lung bases. The liver and spleen are homogeneous in density. Evaluation of the solid organs is limited without IV co ntrast. The kidneys show no apparent mass or obstruction. Small calcifications are present on the rig ht. The adrenal glands are not enlarged. The pancreas is small and difficult to discern. There is no obvious pancreatic abnormality. No adenopathy is seen. There is a large amount of free intraperitonea l air. There is also some bowel dilatation with gas and fluid. Bowel loops extend into an anterior he rnia. There are multiple small air bubbles outside of the lumen in this region. The transverse colon crosses the upper abdomen just behind the region of herniation, but does not appear included in the h ernia. Images through the pelvis show no abnormality of the distal ureters. The bladder contains a catheter and is mostly decompressed. No pelvic or inguinal adenopathy is seen. There is no free fluid in the p pranay. IMPRESSION: There is free intraperitoneal air. There are dilated small bowel loops that may indicate obstruction. The exact point of disruption of the bowel wall is not clear, but likely in the area of the hernia, given the irregular air pockets in this region. FOR INTERNAL CODING PURPOSES Critical result: Findings discussed with patient's nurse at 08/08/2021 11:40 AM. RESULT CODE: (C) Electronically signed by: Johny Thomason Jr., MD (08/08/2021 11:40 AM) [facility]ITALV[facility]
--- NOTE | 2021-08-08 12:43 | PDOC ---
DATE OF SERVICE DATE: 08/08/21 TIME: 12:37 SUBJECTIVE ROS More alert No acute concerns per nursing OBJECTIVE Vital Signs Vital Signs Date Time Temp Pulse Resp B/P (MAP) Pulse Ox O2 Delivery O2 Flow Rate FiO2 08/08/21 11:00 97.6 88 20 154/74 (100) 99 Nasal Cannula 97.6 08/07/21 21:51 2.0 I & 0 Intake and Output 08/08/21 07:00 Output Total 500 ml Balance -500 ml Output Urine Total 500 ml PHYSICAL EXAM Physical Exam GENERAL: NAD HEEN Normocephalic, atraumatic, om moist NECK: Supple. HEART: S1S2, No Murmur LUNGS :Decreased at bases , Non labored ABD: Distended, soft, nontender, no guarding or rigidity. No organomegaly. NEURO: lethargic, opens eyes, tracks and follows command at time. (Rest exam per neurology note) DERM No Rash EXT Chronic Lymphedema PSYCH Unablr to obtain, Altered Mental status DIAGNOSIS/ASSESSMENT Assessment & Plan MAGALIE - ATN 2/2 Dehydration / ; Renal function improving E-Lytes stable . UOP not recorded Supportive care, Maintain Hydration, Renal US, Strict I/O . 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 Pyuria - On Abx , Ur cx pending (did get Abx recently as well for UA with Pyuria but Cx was negative ) Altered Mental status - neurology following HypokALEMIA-Replace COMMENT/RELEVANT DATA Meds Current Medications Medications (Trade) Dose Ordered Sig/Cecelia Start Time Stop Time Status Last Admin Dose Admin Ceftriaxone Sodium (Rocephin) 1 gm Q24H 08/06/21 14:00 08/07/21 14:23 1 GM Dextrose/Sodium Chloride 1,000 ml @ 100 mls/hr Q10H 08/06/21 13:15 08/08/21 08:13 100 MLS/HR Fentanyl Citrate (Fentanyl 2ml Vial) 50 mcg PRN Q4HRS PRN 08/06/21 17:30 08/07/21 21:21 50 MCG Lactobacillus Rhamnosus (Culturelle) 1 cap BID 08/07/21 21:00 Ondansetron HCl (Zofran) 4 mg PRN Q8HRS PRN 08/05/21 17:15 08/06/21 17:14 DC Sodium Chloride 1,000 ml @ 100 mls/hr 1X ONCE 08/05/21 17:15 08/06/21 03:14 DC 08/05/21 17:59 100 MLS/HR Lab Laboratory Tests Test 08/08/21 06:10 White Blood Count 12.7 x10^3/uL (4.0-11.0) Red Blood Count 3.87 x10^6/uL (3.50-5.40) Hemoglobin 12.1 g/dL (12.0-15.5) Hematocrit 37.8 % (36.0-47.0) Mean Corpuscular Volume 98 fL (79-100) Mean Corpuscular Hemoglobin 31 pg (25-35) Mean Corpuscular Hemoglobin Concent 32 g/dL (31-37) Red Cell Distribution Width 13.4 % (11.5-14.5) Platelet Count 227 x10^3/uL (140-400) Sodium Level 137 mmol/L (136-145) Potassium Level 3.3 mmol/L (3.5-5.1) Chloride Level 106 mmol/L (98-107) Carbon Dioxide Level 15 mmol/L (21-32) Anion Gap 16 (6-14) Blood Urea Nitrogen 29 mg/dL (7-20) Creatinine 1.6 mg/dL (0.6-1.0) Estimated GFR (Cockcroft-Gault) 31.3 BUN/Creatinine Ratio 18 (6-20) Glucose Level 156 mg/dL (70-99) Calcium Level 8.7 mg/dL (8.5-10.1) Total Bilirubin 0.3 mg/dL (0.2-1.0) Aspartate Amino Transf (AST/SGOT) 10 U/L (15-37) Alanine Aminotransferase (ALT/SGPT) 17 U/L (14-59) Alkaline Phosphatase 118 U/L (46-116) Total Protein 5.3 g/dL (6.4-8.2) Albumin 1.5 g/dL (3.4-5.0) Albumin/Globulin Ratio 0.4 (1.0-1.7) Results All relevant outside records, renal labs, imaging studies, telemetry/EKG's were reviewed. Justicifation of Admission Dx: Justifications for Admission: Justification of Admission Dx: N/A ANA KRUEGER MD Aug 08, 2021 12:43
[2021-08-08] MEDS ORDERED: POTASSIUM CHLORIDE 20 MEQ TABLET.ER. PO ONE (12:45)
[2021-08-08] MEDS: fentaNYL PF VIAL 100 MCG/2 ML VIAL IVP PRN (13:50)
[2021-08-08] MEDS: cefTRIAXone IV Push 1 GM VIAL. IVP SCH (13:53)
[2021-08-08] MEDS ORDERED: POTASSIUM CHLORIDE 20MEQ 100 ML IV ONE (14:00)
--- NOTE | 2021-08-08 14:34 | NUR ---
Spoke with Son/DPOA Ezekiel Del Castillo about code status, Ezekiel wants patient to be a DNR. Dr. Vaughn was called and RN received an order for DNR via telephone, Airam Wray, JASON verified telephone order with this RN and Dr. Vaughn. DNR order placed in the computer.
[2021-08-08 15:00] VITALS: BP 154/76
[2021-08-08] MEDS ORDERED: fentaNYL PF VIAL 100 MCG/2 ML VIAL IVP PRN (16:15)
[2021-08-08 19:00] VITALS: BP 100/82
--- NOTE | 2021-08-09 09:57 | DS ---
DATE OF DISCHARGE: 08/08/2021 HOSPITAL COURSE: The patient is a 75-year-old female patient, a resident at [facility] in [place] who was admitted to with altered mental status. She was extensively investigated, was seen by the neurologist as well as the insurance representative as she went into acute renal failure. She has had an MRI of the brain as well as an EEG, which were unrevealing. Her kidney function has worsened and her creatinine has risen up to 1.9, for which she was started on IV fluid and her creatinine turned the corner down from 2.4 to 1.6; however, she developed severe pain in her incisional hernia and therefore, I did order a CT scan of the abdomen and pelvis without contrast and this showed that the patient has free intraperitoneal air as well as dilated small bowel loops that may indicate obstruction. The exact point of disruption of the bowel is not clear, but likely in the area of the hernia given the regular air pockets in the region. She was seen in consultation by the surgical team and Dr. Owens did not recommend any surgical intervention and recommended comfort care and we have had a lengthy discussion with her son and the patient was therefore discharged to inpatient hospice care. PHYSICAL EXAMINATION: GENERAL: On the day of discharge, the patient was resting, slightly propped up in bed, in no apparent respiratory distress. There was no pallor, jaundice, cyanosis or thyromegaly. No jugular venous distention. No lower limb edema. VITAL SIGNS: Her heart rate was 98, blood pressure was 100/82, temperature 97.7, respiratory rate 20, and oxygen saturation was 97% on 2 liters of oxygen. HEAD, EYES, EARS, NOSE AND THROAT: Normocephalic, atraumatic. NECK: Supple. HEART: Showed normal first and second heart sounds. No gallop or murmur. CHEST: Clear to auscultation. No crepitation or rhonchi. ABDOMEN: Distended, soft with marked tenderness over her ventral incisional hernia. NEUROLOGIC: She is demented. She is mostly bedbound. LABORATORY DATA: Showed a white cell count 12,700, hemoglobin 12, hematocrit 38, MCV 98 and platelet count 227,000. Her chemistry showed a serum sodium 137, potassium 3.3, chloride 106, bicarbonate 15, anion gap of 16, BUN 29, creatinine 1.6, estimated GFR was 31 mL per minute, her glucose was 156, calcium was 8.7. Total bilirubin, AST, ALT, alkaline phosphatase were normal. Total protein was 5.3, albumin was 1.5. DISCHARGE MEDICATIONS: The patient was discharged to inpatient hospice care to continue on IV morphine as well as Ativan. FINAL DISCHARGE DIAGNOSES: 1. Bowel perforation. 2. Dementia. 3. Acute kidney injury. 4. Poor mobility. ROLY DR: Surekha TID: [id number]
== END 2021-08-08 21:29 | disposition hospice, inpatient (51) | DRG 393 ==
LOC: ER 14:00 → ED HOLD 16:52 → 5 SOUTH 21:25
PROVIDERS: ADMIT Internal Medicine; ATTEND Internal Medicine
DX: K63.1 Perforation of intestine (nontraumatic) (principal); N17.0 Acute kidney failure with tubular necrosis; I24.8 Other forms of acute ischemic heart disease; I50.32 Chronic diastolic (congestive) heart failure; D64.9 Anemia, unspecified; E78.5 Hyperlipidemia, unspecified; E86.0 Dehydration; F03.90 Unspecified dementia, unspecified severity, without behavioral disturbance, psychotic disturbance, mood disturbance, and anxiety; G89.29 Other chronic pain; I89.0 Lymphedema, not elsewhere classified; K43.2 Incisional hernia without obstruction or gangrene; M43.6 Torticollis; M47.812 Spondylosis without myelopathy or radiculopathy, cervical region; M81.0 Age-related osteoporosis without current pathological fracture; Z82.49 Family history of ischemic heart disease and other diseases of the circulatory system; Z86.16 Personal history of COVID-19; F41.9 Anxiety disorder, unspecified; K21.9 Gastro-esophageal reflux disease without esophagitis; Z20.822 Contact with and (suspected) exposure to COVID-19; Z88.8 Allergy status to other drugs, medicaments and biological substances; Z91.040 Latex allergy status; E87.6 Hypokalemia; I12.9 Hypertensive chronic kidney disease with stage 1 through stage 4 chronic kidney disease, or unspecified chronic kidney disease; N18.31 Chronic kidney disease, stage 3a
CPT/HCPCS: 36415; 51702; 70450; 71045; 74176; 76770; 80048; 80053; 81001; 82140; 82550; 82607; 82962; 83690; 83735; 83880; 84443; 84484; 85007; 85025; 85027; 85651; 86140; 87040; 87086; 87426; 95816; G0378; J0696; J3010; J3480; J7030; J7042; U0003; U0005; 99285-25

== ENCOUNTER 2021-08-08 21:45 | Inpatient (IN) | payer OTHER ==
[~2021-08-08] VITALS: Ht 157.5 cm; Wt 78.0 kg
[2021-08-08 19:00] VITALS: BP 100/82
[~2021-08-08 21:45] MED LIST changes: +BUPR150T21 PO; +CHOL10004 PO; -LISI-517 PO; +LISI10TA16 PO; +LISI5TAB15 PO
[2021-08-08] MEDS ORDERED: MORPHINE SULFATE 30 ML IV PRN (22:30)
[2021-08-08] MEDS: IV NORMAL SALINE 1000ML BAG 1,000 ML IV SCH (23:57)
[2021-08-09] MEDS: SCOPOLAMINE 1.5MG PATCH. TD SCH (00:06)
[2021-08-09] MEDS ORDERED: ONDANSETRON PF 4 MG/2 ML VIAL. IVP PRN (01:15)
[2021-08-09] MEDS ORDERED: IBUPROFEN 200 MG TABLET. PO PRN (01:15)
[2021-08-09] MEDS ORDERED: BISACODYL 10 MG SUPP.RECT. PR PRN (01:15)
[2021-08-09] MEDS: MORPHINE SULFATE 30 ML IV PRN ×3 (05:29→17:31)
[2021-08-09] MEDS: IV DEXTROSE 5 %-0.45 % NACL 1,000 ML IV SCH ×2 (05:59→16:00)
[2021-08-09 09:08] VITALS: BP 141/80
--- NOTE | 2021-08-09 11:19 | HP ---
DATE OF SERVICE: 08/09/2021 ADMIT DATE: 08/08/2021 HISTORY OF PRESENT ILLNESS: The patient is a 75-year-old female patient who was admitted originally with altered mental status. She was found to be dehydrated and in acute kidney injury. She was seen in consultation by the neurologist as well as recreational therapy aide and started on IV fluid and IV antibiotic. Had had a CT scan of the head, which showed no evidence of acute intracranial process, white matter changes, likely chronic small vessel disease. Her ventricles and cerebral sulci are prominent for the patient's stated age consistent with generalized cerebral volume loss. Had had an EEG, that was negative for epileptic activity such as Creutzfeldt-Jabari disease; however, there is slowing of background and yesterday, the patient complained of severe abdominal pain, marked tenderness in her ventral incisional hernia and therefore, we did a CT scan of the abdomen and pelvis without contrast, which basically showed there is free intraperitoneal air. There are dilated small bowel loops that may indicate obstruction. The exact point of disruption of the bowel wall is not clear, but likely in the area of the hernia given the regular air pockets in this region. She was evaluated by the surgical team and they did not recommend any surgical intervention and recommended comfort and hospice care and therefore, the patient was admitted to inpatient hospice care. PHYSICAL EXAMINATION: GENERAL: On examining her, she looked well and was clearly in no apparent respiratory distress. There was no pallor, jaundice, cyanosis, or thyromegaly. No jugular venous distention. No edema. VITAL SIGNS: Her heart rate was 98, blood pressure was 100/82, temperature was 97.7, respiratory rate was 18 and oxygen saturation was 97% on 2 liters of oxygen. HEAD, EYES, EARS, NOSE, AND THROAT: Normocephalic, atraumatic. NECK: Supple. HEART: Showed normal first and second heart sounds, no gallop, rub or murmur. CHEST: Clear to auscultation, no crepitation or rhonchi. ABDOMEN: Distended with a midline ventral incisional hernia that is tender. There is no guarding or rigidity. No organomegaly and bowel sounds were audible. NEUROLOGIC: She is extremely demented; however, all her cranial nerves intact. She moves upper extremities to much good extent than lower extremities. She is mostly bedbound. ASSESSMENT AND PLAN: The patient was admitted to inpatient hospice and continued on morphine sulfate, scopolamine and lorazepam with admission diagnosis of advanced dementia, acute kidney injury, bowel perforation, functional paraplegia. KAILA/YASMANI DR: MARINA/delfin TID: [id number]
--- NOTE | 2021-08-09 13:11 | PN ---
DATE: 08/09/2021 SUBJECTIVE: The patient is resting flat, comfortably in bed, in no apparent respiratory distress. She is on morphine at 5 mg every hour as well as Ativan and scopolamine patch. OBJECTIVE: GENERAL: On examining her, she looked well and was clearly in no apparent respiratory distress. No pallor, jaundice, cyanosis or thyromegaly. No jugular venous distention. No limb edema. VITAL SIGNS: Her heart rate was 88, blood pressure was 141/80, temperature was 98.5, respiratory rate 20, and oxygen saturation was 96% on 2 liters of oxygen. The rest of clinical exam stable. ASSESSMENT: 1. Perforated bowel. 2. Acute kidney injury. 3. Advanced dementia. 4. Functional paraplegia. PLAN: To continue with comfort care in the form of morphine and Ativan. Adjust the dose as necessary for comfort. NATALEE/YASMANI DR: Surekha TID: [id number]
[2021-08-09 19:00] VITALS: BP 150/73
[2021-08-09] MEDS: IV NORMAL SALINE 1000ML BAG 1,000 ML IV SCH (20:11)
[2021-08-10] MEDS: MORPHINE SULFATE 30 ML IV PRN ×6 (00:04→21:37)
[2021-08-10 07:00] VITALS: BP 141/73
--- NOTE | 2021-08-10 11:14 | PN ---
DATE: 08/10/2021 SUBJECTIVE: The patient is resting, slightly propped up in bed. When I saw her, she does open her eyes and seems to be moaning and groaning. PHYSICAL EXAMINATION: GENERAL: When I examined her, she was pale, but not jaundiced, cyanosed, no lymphadenopathy, no thyromegaly, no jugular venous distention. No limb edema. VITAL SIGNS: Her heart rate was 100, blood pressure was 141/73, temperature was 98.8, respiratory rate was 16 and oxygen saturation was 99% on 2 liters of oxygen. HEAD, EYES, EARS, NOSE AND THROAT: Normocephalic, atraumatic. NECK: Supple. HEART: Normal first and second heart sounds, no gallop or murmur. CHEST: Central trachea, equal bilateral chest expansion, air entry, vesicular breath sounds. No crepitation or rhonchi. ABDOMEN: Distended, tender. NEUROLOGIC: She is awake, alert, opens eyes. ASSESSMENT: 1. Perforated bowel. 2. Acute peritonitis. 3. Acute kidney injury. 4. Advanced dementia. 5. Functional paraplegia. PLAN: To continue with comfort care in the form of morphine, Ativan and increase the dose of morphine and Ativan as necessary for comfort. POLA DR: Surekha TID: [id number]
[2021-08-10 19:00] VITALS: BP 155/85
[2021-08-11] MEDS: MORPHINE SULFATE 30 ML IV PRN ×3 (01:09→08:02)
[2021-08-11] MEDS: IV NORMAL SALINE 1000ML BAG 1,000 ML IV SCH ×3 (04:49→22:30)
[2021-08-11 07:00] VITALS: BP 156/72
[2021-08-11] MEDS ORDERED: NALOXONE 0.4 MG/ML VIAL. IV PRN (08:45)
--- NOTE | 2021-08-11 08:53 | PN ---
DATE: 08/11/2021 SUBJECTIVE: The patient is resting, slightly propped up in bed, in no apparent respiratory distress. She continued to moan and groan, although she is already on 10 mg of IV morphine. PHYSICAL EXAMINATION: GENERAL: On examining her, she was somewhat pale, but not jaundiced or cyanosed, no lymphadenopathy, no thyromegaly. VITAL SIGNS: Her heart rate was 110, blood pressure was 155/65, temperature was 98.2, respiratory rate was 20 and oxygen saturation was 94% on 2 liters of oxygen. The rest of clinical exam stable. LABORATORY DATA: No lab work is available. ASSESSMENT: 1. Perforated bowel. 2. Acute peritonitis. 3. Acute kidney injury. 4. Advanced dementia. 5. Functional paraplegia. PLAN: Continue with comfort care in the form of morphine and Ativan. Increase the dose of morphine and Ativan as necessary for comfort. ROLY DR: Surekha TID: [id number]
[2021-08-11] MEDS: SCOPOLAMINE 1.5MG PATCH. TD SCH (09:12)
[2021-08-11] MEDS ORDERED: MORPHINE SULFATE 30 ML IV PRN (10:30)
[2021-08-11] MEDS ORDERED: MORPHINE HIGH DOSE PCA 50 ML IV PRN (10:45)
[2021-08-11] MEDS: MORPHINE SULFATE 10 MG/ML VIAL. IV PRN (14:55)
[2021-08-11] MEDS: MORPHINE HIGH DOSE PCA 50 ML IV PRN (16:18)
[2021-08-11 19:00] VITALS: BP 177/63
[2021-08-12] MEDS: MORPHINE HIGH DOSE PCA 50 ML IV PRN ×2 (02:59→15:51)
[2021-08-12 07:00] VITALS: BP 179/71
[2021-08-12] MEDS: IV NORMAL SALINE 1000ML BAG 1,000 ML IV SCH ×2 (08:38→22:30)
[2021-08-12] MEDS ORDERED: ACETAMINOPHEN 650 MG SUPP.RECT. PR PRN (09:30)
--- NOTE | 2021-08-12 09:31 | PN ---
DATE: 08/12/2021 SUBJECTIVE: The patient is resting, propped up in bed, very flushed, tachypneic, febrile. PHYSICAL EXAMINATION: GENERAL: When I examined her, she was somewhat pale, not jaundiced, cyanosed or thyromegaly. No jugular venous distention. No lower limb edema. VITAL SIGNS: Her heart rate was 75, blood pressure was 177/63, temperature was 103 Fahrenheit, respiratory rate was 24 and oxygen saturation was 93% on room air. HEAD, EYES, EARS, NOSE, AND THROAT: Normocephalic, atraumatic. NECK: Supple. HEART: Normal first and second heart sounds, no gallop or murmur. CHEST: Clear to auscultation, no crepitation or rhonchi. ABDOMEN: Distended with tenderness over the incisional hernia. NEUROLOGIC: She is extremely lethargic. ASSESSMENT: 1. Perforated bowel. 2. Acute peritonitis. 3. Acute kidney injury. 4. Advanced dementia. 5. Functional paraplegia. PLAN: To continue with comfort care in the form of morphine and Ativan and increase the dose and frequency as needed. I will add also Tylenol suppositories 650 mg every 4 hours rectally for temperature more than 100. NANETTE DR: Surekha TID: [id number]
[2021-08-12] MEDS: MORPHINE SULFATE 10 MG/ML VIAL. IV PRN (09:52)
--- NOTE | 2021-08-12 17:32 | NUR ---
Carin RN with [facility] received a telephone order from Dr. Vaughn to increase the max dose of the morphine [employer] CONDITIONING SUPER[employer] to 35mg. Order placed in computer. Will continue to monitor.
[2021-08-12 19:00] VITALS: BP 119/66
[2021-08-13] MEDS: MORPHINE HIGH DOSE PCA 50 ML IV PRN ×4 (02:40→21:54)
[2021-08-13 07:00] VITALS: BP 165/74
[2021-08-13] MEDS: IV NORMAL SALINE 1000ML BAG 1,000 ML IV SCH (07:37)
--- NOTE | 2021-08-13 11:07 | PN ---
DATE: 08/13/2021 SUBJECTIVE: The patient is resting, slightly propped up in bed, lethargic, seems to have also prolonged pauses. PHYSICAL EXAMINATION: GENERAL: When I examined her, she looked well and was clearly in no apparent respiratory distress. Pale, but not jaundiced or cyanosed. No lymphadenopathy, no thyromegaly. No jugular venous distention. No limb edema. VITAL SIGNS: Her heart rate was 53, blood pressure was 165/73, temperature was 98.1, respiratory rate 20, and oxygen saturation was 97% on 2 liters of oxygen. The rest of clinical exam stable. ASSESSMENT: 1. Perforated bowel. 2. Acute peritonitis. 3. Acute kidney injury. 4. Advanced dementia. 5. Functional paraplegia. PLAN: Continue with comfort care in the form of morphine, Ativan as well as Tylenol. Increase the dose and frequency as needed for comfort. ROLY DR: Surekha TID: [id number]
[2021-08-13] MEDS: MORPHINE SULFATE 10 MG/ML VIAL. IV PRN (13:40)
[2021-08-13 19:00] VITALS: BP 135/54
[2021-08-14] MEDS: IV NORMAL SALINE 1000ML BAG 1,000 ML IV SCH (02:44)
[2021-08-14] MEDS: MORPHINE SULFATE 10 MG/ML VIAL. IV PRN ×2 (05:51→15:36)
[2021-08-14 07:00] VITALS: BP 142/49
[2021-08-14] MEDS: MORPHINE HIGH DOSE PCA 50 ML IV PRN ×2 (08:16→16:22)
[2021-08-14] MEDS: SCOPOLAMINE 1.5MG PATCH. TD SCH (08:16)
--- NOTE | 2021-08-14 10:30 | PN ---
DATE: 08/14/2021 SUBJECTIVE: The patient is resting, slightly propped up in bed, in no apparent respiratory distress. She is now on morphine at 25 mg per hour and Ativan 2 mg every hour as needed. PHYSICAL EXAMINATION: GENERAL: When I examined her, she was pale, but not jaundiced or cyanosed. No thyromegaly. No jugular venous distention. No limb edema. VITAL SIGNS: Her heart rate was 62, blood pressure was 142/49, temperature was 98.5, respiratory rate was 20, and oxygen saturation was 90% on room air. HEAD, EYES, EARS, NOSE, AND THROAT: Normocephalic, atraumatic. NECK: Supple. HEART: Normal first and second heart sounds. No gallop or murmur. CHEST: Clear to auscultation. No crepitation or rhonchi. ABDOMEN: Distended. Tenderness over the ventral hernia. NEUROLOGIC: She is very lethargic. ASSESSMENT: 1. Perforated bowel. 2. Acute peritonitis. 3. Acute kidney injury. 4. Advanced dementia. 5. Functional paraplegia. PLAN: To continue with comfort care in the form of morphine and Ativan as well as Tylenol. Increase the dose and frequency as needed for comfort. LEONIE DR: Surekha TID: [id number]
[2021-08-14 19:00] VITALS: BP 141/63
[2021-08-14] MEDS ORDERED: HYDROmorphone 2 MG/ML VIAL IVP SCH (20:30)
[2021-08-14] MEDS ORDERED: HYDROmorphone 12mg/30ml PCA 30 ML IV PRN (21:15)
[2021-08-14] MEDS: HYDROmorphone 12mg/30ml PCA 30 ML IV PRN (22:13)
[2021-08-14] MEDS ORDERED: HYDROmorphone 2 MG/ML VIAL IV PRN ×2 (22:45→23:30)
--- NOTE | 2021-08-14 22:58 | NUR ---
2002 - verbal order given per Dr Vaughn to have pharmacy help find Dilaudid dose equivalent to 35mg morphine and give a slightly higher dose to keep pt comfortable as pt moaning constantly. Also ordered a bolus dose of dilaudid equivalent to 5 mg morphine pt getting. This RN spoke to Maegan in pharmacy to make sure dosing correct for situation. 2mg boluses given every 10 min in atttempt to get her comfortable. Will continue to monitor pt closely and find correct dose of dilaudid to keep pt comfortable as pt continues to moan with each breath. Addendum: 08/15/21 at 0648 by CARLYN ZAMORA RN RN At 0559 - tele monitor noted to go from 62 to 0 bpm. RN entered room - pt had passed. JASON Palomino and this RN pronounced. Son called at 0615 and made aware, Joselitojonathan notified at 0619. [facility] notified at 0627 - pt not candidate for tissue or eye donation 9 reference number - [id number], Dr Vaughn notified at 0636.
[2021-08-14] MEDS ORDERED: HYDROMORPHONE IV PRN (23:15)
[2021-08-14] MEDS ORDERED: NORMAL SALINE IV PRN (23:15)
[2021-08-14] MEDS ORDERED: HYDROmorphone 2 MG/ML VIAL IVP PRN (23:30)
[2021-08-14] MEDS: HYDROmorphone 2 MG/ML VIAL IV PRN (23:48)
[2021-08-15] MEDS: HYDROmorphone 2 MG/ML VIAL IV PRN ×10 (00:09→05:31)
[2021-08-15] MEDS: HYDROmorphone 12mg/30ml PCA 30 ML IV PRN (00:09)
[2021-08-15] MEDS: HYDROMORPHONE IV PRN ×2 (00:41→03:58)
[2021-08-15] MEDS: NORMAL SALINE IV PRN ×2 (00:41→03:58)
--- NOTE | 2021-08-15 11:27 | NUR ---
Patient at 0559 on 08/15/21, Dr. Vaughn notified by JASON Melo and son was also called and notified. Annelise Pringle RN was notified as well. Body was tagged and taken down to the [facility] at 1125am after family had been here and left. Patient had a green blanket that was wrapped with her and sent to [facility] with patient. All other belongings were taken home by family.
== END 2021-08-15 05:59 | DRG 682 ==
LOC: 5 SOUTH 21:45
PROVIDERS: ADMIT Internal Medicine; ATTEND Internal Medicine
DX: N17.9 Acute kidney failure, unspecified (principal); K65.9 Peritonitis, unspecified; K63.1 Perforation of intestine (nontraumatic); K65.0 Generalized (acute) peritonitis; E86.0 Dehydration; F03.90 Unspecified dementia, unspecified severity, without behavioral disturbance, psychotic disturbance, mood disturbance, and anxiety; F44.4 Conversion disorder with motor symptom or deficit; K43.2 Incisional hernia without obstruction or gangrene; Z51.5 Encounter for palliative care
CPT/HCPCS: J1170; J2060; J2270; J7030; J7042; G0378